=== PATIENT | male | born 1980 | race Caucasian/White ===

== ENCOUNTER 2017-10-01 21:46 | Emergency (ER) | payer OTHER ==
[2017-10-01 21:51] VITALS: BP 149/67; PULSE 85; RESP 16; TEMP 98.5
[2017-10-01] MEDS ORDERED: ORPHENADRINE 30 MG/ML 2 ML VIAL IM STA (22:05)
[2017-10-01] MEDS ORDERED: KETOROLAC 60 MG/2 ML VIAL IM STA (22:05)
--- NOTE | 2017-10-01 22:14 | ED ---
General Adult HPI - General Chief complaint: Extremity Injury, Lower Stated complaint: hip pain Time Seen by Provider: 10/01/17 21:57 Source: patient, RN notes reviewed Mode of arrival: ambulatory Limitations: no limitations - History of Present Illness Initial comments: 37-year-old male presents to the emergency department with a chief complaint of left hip pain. He states he twisted and he developed pain and left hip. He states that stretching and rubbing it seemed to get better. He states he then fell off the floor and developed the same pain again. He took one of his narcosis and muscle relaxers which did seem to help with the pain. He states in the left hip buttock area. Patient states that there is no falls or injuries that he is aware of. Patient denies any history of this in the past. Patient states is not currently having any other symptoms at this time. Patient denies any recent fever, chills, shortness of breath, chest pain, back pain, abdominal pain, nausea vomiting, numbness or tingling, dysuria or hematuria, constipation or diarrhea, headaches or visual changes, or any other current symptoms. - Related Data Previous Rx's Medication Instructions Recorded Ibuprofen [Motrin] 600 mg PO Q6HR PRN #20 tab 10/01/17 Orphenadrine [Norflex] 100 mg PO Q12H #10 tablet.er 10/01/17 predniSONE 50 mg PO DAILY #5 tab 10/01/17 Allergies Allergy/AdvReac Type Severity Reaction Status Date / Time No Known Allergies Allergy Verified 09/17/14 22:40 Review of Systems ROS Statement: Those systems with pertinent positive or pertinent negative responses have been documented in the HPI. ROS Other: All systems not noted in ROS Statement are negative. Past Medical History Past Medical History: Heart Failure, COPD, Diabetes Mellitus, Hypertension Additional Past Medical History / Comment(s): Cervical fracture, hypercholestremia. History of Any Multi-Drug Resistant Organisms: None Reported Past Surgical History: No Surgical Hx Reported Past Psychological History: No Psychological Hx Reported Smoking Status: Current every day smoker Past Alcohol Use History: Occasional Past Drug Use History: None Reported General Exam Limitations: no limitations General appearance: alert, in no apparent distress Eye exam: Present: normal appearance, PERRL, EOMI. Absent: scleral icterus, conjunctival injection, periorbital swelling ENT exam: Present: normal exam, mucous membranes moist Neck exam: Present: normal inspection. Absent: tenderness, meningismus, lymphadenopathy Respiratory exam: Present: normal lung sounds bilaterally. Absent: respiratory distress, wheezes, rales, rhonchi, stridor Cardiovascular Exam: Present: regular rate, normal rhythm, normal heart sounds. Absent: systolic murmur, diastolic murmur, rubs, gallop, clicks Extremities exam: Present: normal inspection, full ROM, normal capillary refill. Absent: tenderness, pedal edema, joint swelling, calf tenderness Back exam: Present: normal inspection, full ROM, tenderness (Over the SI joint) . Absent: muscle spasm, paraspinal tenderness, vertebral tenderness Neurological exam: Present: alert, oriented X3 Psychiatric exam: Present: normal affect, normal mood Skin exam: Present: warm, dry, intact, normal color. Absent: rash Course Vital Signs 10/01/17 21:47 Temperature 98.5 F Pulse Rate 85 Respiratory 16 Rate Blood Pressure 149/67 O2 Sat by Pulse 98 Oximetry Medical Decision Making - Medical Decision Making 37-year-old male presents with what is suspicious for a sciatica type pain. We will start the patient on muscle relaxers Relaxers and anti-inflammatories for home. We did discuss follow-up return parameters all questions. Patient stated that he understood and management this plan. All questions have been answered. He will be discharged home. - Radiology Data Radiology results: report reviewed, image reviewed Disposition Clinical Impression: Sciatica of left side Disposition: HOME SELF-CARE Condition: Stable Instructions: Sciatica (ED), Lower Back Exercises (ED) Additional Instructions: Please use medication as discussed. Please follow up with family doctor if symptoms have not improved over the next two days. Please return to the emergency room if your symptoms increase or worsen or for any other concerns. Prescriptions: Ibuprofen [Motrin] 600 mg PO Q6HR PRN #20 tab PRN Reason: Pain Orphenadrine [Norflex] 100 mg PO Q12H #10 tablet.er predniSONE 50 mg PO DAILY #5 tab Referrals: Abdoulaye Barth MD [Primary Care Provider] - 1-2 days Time of Disposition: 22:56
--- NOTE | 2017-10-01 22:46 | XR ---
EXAMINATION TYPE: XR Hip LT and AP Pelvis DATE OF EXAM: 10/01/2017 COMPARISON: NONE HISTORY: Twisting injury TECHNIQUE: A single AP view of the pelvis is obtained. Two views of the left hip are obtained. FINDINGS: The pelvic ring is intact. Proximal left femur and hip joint are intact. There is mild crista tabular spurring. There is no sign of hip dysplasia. CONCLUSION: Early osteoarthritic changes. No fracture seen.
--- NOTE | 2017-10-01 22:55 | XR ---
EXAMINATION TYPE: XR lumbar spine 2 or 3V DATE OF EXAM: 10/01/2017 COMPARISON: NONE HISTORY: Back pain TECHNIQUE: 3 views FINDINGS: Vertebra have normal alignment. Disc spaces are normal. Posterior elements are intact. Ther e is no compression fracture. Sacroiliac joints appear normal. IMPRESSION: Normal lumbar spine.
== END 2017-10-01 23:01 | disposition home or self-care (01) ==
LOC: EC 21:46
DX: M54.30 Sciatica, unspecified side (principal); F17.200 Nicotine dependence, unspecified, uncomplicated
CPT/HCPCS: 72100; 73502; 99283; 96372 ×2; J2360; J1885

== ENCOUNTER → 2018-09-11 | Outpatient (CLI) | payer OTHER ==
--- NOTE | 2018-09-11 16:03 | CONS ---
CONSULTATION DATE OF SERVICE: 09/11/2018 This patient is a 38-year-old gentleman who has been evaluated in [facility] for possible obstructive sleep apnea-hypopnea syndrome. HISTORY OF PRESENT ILLNESS/SLEEP-WAKE EVALUATION: Patient's usual sleep schedule is from between 10 p.m. and 2 a.m. until between 11 a.m. and 1 p.m. He may have some problem with falling asleep. He has a TV set in the bedroom. He usually sleeps on the back or side position, sometimes in a chair, with loud snoring and witnessed episodes of stopped breathing during sleep with choking and gasping for air. He wakes up from sleep up to 10 times, with up to 10 episodes of nocturia. In the morning the patient wakes up tired, falling asleep during the day. He has episodes of irritability, anxiety, sexual dysfunction. [place] Sleepiness Scale is significantly increased at 17. PAST MEDICAL HISTORY: Positive for: 1. Diabetes. 2. Hypertension. 3. Hyperlipidemia. 4. COPD. PAST SURGICAL HISTORY: None. MEDICATIONS: 1. Glucophage. 2. Amaryl. 3. Zestoretic. 4. Lipitor. SOCIAL HISTORY: Positive for smoking for about 22 pack/years. Continues to smoke. Alcohol consumption occasional. FAMILY HISTORY: Hypertension, heart problems, hyperlipidemia, asthma, bronchitis, lung problems, sleep apnea, snoring, pneumonia, headaches, insomnia, diabetes, acid reflux, restless legs. REVIEW OF SYSTEMS: Multiple awakenings from sleep, sleepiness during the day. PHYSICAL EXAMINATION: GENERAL: A pleasant gentleman without distress. VITAL SIGNS: BP 130/63, HR 92, RR 16, height 5 feet 9-1/2 inches, weight 372 pounds. Body mass index 54.1. Temperature 97.0, oxygen saturation at room air 96%. HEENT: PERRLA, EOMI. Evaluation of oropharynx showed tongue protrudes midline. Extremely low position of soft palate. NECK: Supple. No JVD. Thyroid is not palpable. Wide neck; 22 inches in circumference. LUNGS: Clear to percussion and to auscultation. Good air exchange. No wheezing or rhonchi. HEART: S1, S2 regular. No murmurs, gallops or rubs. ABDOMEN: Obese. EXTREMITIES: One to two plus bilateral ankle edema. FORM GRADER OPERATOR: Awake, alert, and oriented X3. Cranial nerves 2 to 7 intact. There is no fasciculation or atrophy. noted. No focal deficits observed. IMPRESSION: 1. Snoring, witnessed episodes of stopped breathing during sleep, low position of soft palate, wide neck, sleepiness; obstructive sleep apnea-hypopnea syndrome. 2. Obesity; body mass index 54.1. 3. Diabetes. 4. Hypertension. 5. History of chronic obstructive pulmonary disease. PLAN: 1. Polysomnography for evaluation of patient's breathing during sleep. 2. CPAP/BiPAP titration if sleep study confirms obstructive sleep apnea-hypopnea syndrome. 3. Preferable position during sleep on the side. 4. No driving if patient feels any sleepiness. 5. I will see patient for follow up visit to explain results of testing and following plan. Thank you very much for referring this patient for consultation. Sincerely, Obi Rich MD, PhD, FAASM Diplomat of [place] [employer] [place] [employer] Nutritional Yeast Supervisor of [facility] [place] MMODL / IJN: [id number] /
== END | disposition home or self-care (01) ==
LOC: SLEEP 14:06
PROVIDERS: ATTEND Internal Medicine
DX: G47.33 Obstructive sleep apnea (adult) (pediatric) (principal); R35.1 Nocturia; E66.9 Obesity, unspecified; E11.9 Type 2 diabetes mellitus without complications; I10 Essential (primary) hypertension; J44.9 Chronic obstructive pulmonary disease, unspecified; F41.9 Anxiety disorder, unspecified; F17.210 Nicotine dependence, cigarettes, uncomplicated; R45.4 Irritability and anger; Z79.84 Long term (current) use of oral hypoglycemic drugs; Z68.43 Body mass index [BMI] 50.0-59.9, adult; Z79.899 Other long term (current) drug therapy; Z83.6 Family history of other diseases of the respiratory system
CPT/HCPCS: 99211

== ENCOUNTER 2019-05-19 07:00 | Day surgery (SDC) | payer OTHER ==
[2019-05-18 10:33] VITALS: BMI 52.9
[2019-05-19] MEDS ORDERED: LACTATED RINGERS 1,000 ML IV SCH (07:07)
[2019-05-19 07:20] VITALS: RESP 18; TEMP 98.2
[2019-05-19 07:30] LABS: Glucose,Whole Blood 131 mg/dL (75-99)
[2019-05-19] MEDS ORDERED: fentaNYL (PF) 50 MCG/ML 2 ML AMP ONE (07:43)
[2019-05-19] MEDS ORDERED: MIDAZOLAM 2 MG/2 ML VIAL ONE (07:43)
[2019-05-19] MEDS ORDERED: PROPOFOL 10 MG/ML 20 ML VIAL IV ONE (07:43)
[2019-05-19] MEDS ORDERED: LIDOCAINE 1% INJ 10MG/ML (20 ML MDV) ONE (07:43)
--- NOTE | 2019-05-19 07:57 | P.GSHP ---
History of Present Illness H&P Date: 05/19/19 Chief Complaint: GI bleed This a 2-year-old male referred from Dr. Veronica. Patient has had complaints of GI bleed. He presents today for EGD and colonoscopy. Past Medical History Past Medical History: Heart Failure, COPD, Diabetes Mellitus, GERD/Reflux, Hyperlipidemia, Hypertension, Sleep Apnea/CPAP/BIPAP Additional Past Medical History / Comment(s): Cervical fracture c-7 , occasional numbness and tingling in arms ., Gout., Sleep Apnea (never obtained his c-pap), edema legs-some weeping of fluid., recent cut on right leg., back pain, diabetic neuropathy., blood in stool. History of Any Multi-Drug Resistant Organisms: MRSA Date of last positivie culture/infection: 2005 MDRO Source:: lungs, urine & blood ([facility]) Past Surgical History: No Surgical Hx Reported Additional Past Anesthesia/Blood Transfusion Reaction / Comment(s): no anesthesia hx. Past Psychological History: Anxiety, Depression Additional Psychological History / Comment(s): never treated. Smoking Status: Heavy tobacco smoker Past Alcohol Use History: Occasional Additional Past Alcohol Use History / Comment(s): smokes 1 1/2 to 2 ppd. started smoking age 14. Past Drug Use History: None Reported - Past Family History Mother Family Medical History: No Reported History Medications and Allergies Home Medications Medication Instructions Recorded Confirmed Type Atorvastatin [Lipitor] 20 mg PO HS 05/18/19 05/19/19 History Cetirizine HCl 10 mg PO DAILY 05/18/19 05/19/19 History Fluticasone/Salmeterol [Airduo 1 puff INHALATION BID 05/18/19 05/19/19 History Respiclick 232-14 Mcg] Furosemide [Lasix] 60 mg PO DAILY 05/18/19 05/19/19 History Glimepiride [Amaryl] 1 mg PO AC-BRKFST 05/18/19 05/19/19 History Losartan Potassium [Cozaar] 100 mg PO DAILY 05/18/19 05/19/19 History Omeprazole [PriLOSEC] 40 mg PO DAILY 05/18/19 05/19/19 History metFORMIN HCL [Glucophage] 1,000 mg PO BID 05/18/19 05/19/19 History traMADol HCl [Ultram] 50 mg PO BID PRN 05/18/19 05/19/19 History Allergies Allergy/AdvReac Type Severity Reaction Status Date / Time No Known Allergies Allergy Verified 05/18/19 09:47 Surgical - Exam Vital Signs Temp Pulse Resp BP Pulse Ox 98.2 F 82 18 133/63 93 L 05/19/19 07:18 05/19/19 07:18 05/19/19 07:18 05/19/19 07:18 05/19/19 07:18 - General well developed, well nourished, no distress - Eyes PERRL - ENT normal pinna - Neck no masses - Respiratory normal expansion - Cardiovascular Rhythm: regular - Abdomen Abdomen: soft, non tender Results - Labs Abnormal Lab Results - Last 24 Hours (Table) 05/19/19 Range/Units 07:27 POC Glucose (mg/dL) 131 H (75-99) mg/dL Assessment and Plan Assessment: GI bleed. We'll perform EGD and colonoscopy.
--- NOTE | 2019-05-19 08:19 | P.OP ---
Description of Procedure: Date of Procedure: 05/19/19 Preoperative Diagnosis: GI bleed Postoperative Diagnosis: Antral gastritis Internal hemorrhoids Mild diverticular changes Procedure(s) Performed: EGD Colonoscopy Anesthesia: MAC Surgeon: Pradeep Garduno Pathology: other (Antrum) Condition: stable Disposition: PACU Description of Procedure: Patient's placed on the endoscopy table in the lateral position. He received IV sedation. The gastric scope placed oropharynx and passed in the esophagus. Scope was then placed through the pylorus. The first and second portion of the duodenum appeared normal. Scope was then brought back the antrum and this appeared moderately inflamed. A biopsies performed. The scope was retroflexed and remainder of the stomach appeared normal. The GE junction was at 40 cms. The distal esophagus appeared normal. The proximal esophagus appeared normal. Scope scope was withdrawn for patient. Next, digital rectal exam was performed which revealed internal and external hemorrhoids. The prostate was symmetrical without nodules. The flexible colonoscope was then placed patient anus and passed throughout the entire colon. The ileocecal valve was visualized. The cecum, ascending and transverse colon appeared normal. In the descending and sigmoid colon there was a few scattered diverticula. Scope was then brought back the rectum and this appeared normal. Scope was withdrawn for patient. It was presumed the patient had rectal bleeding due to his hemorrhoids. Additional CC's: José Antonio Veronica
[2019-05-19 08:42] VITALS: BP 115/67; PULSE 78
== END 2019-05-19 08:50 | disposition home or self-care (01) ==
LOC: ORWHC2ENDO 07:00
PROVIDERS: ATTEND Surgery
DX: K29.50 Unspecified chronic gastritis without bleeding (principal); K64.8 Other hemorrhoids; K64.4 Residual hemorrhoidal skin tags; K57.30 Diverticulosis of large intestine without perforation or abscess without bleeding; K92.2 Gastrointestinal hemorrhage, unspecified; I11.0 Hypertensive heart disease with heart failure; E78.5 Hyperlipidemia, unspecified; E11.40 Type 2 diabetes mellitus with diabetic neuropathy, unspecified; Z79.84 Long term (current) use of oral hypoglycemic drugs; J44.9 Chronic obstructive pulmonary disease, unspecified; K21.9 Gastro-esophageal reflux disease without esophagitis; G47.30 Sleep apnea, unspecified; R60.0 Localized edema; F41.9 Anxiety disorder, unspecified; F32.9 Major depressive disorder, single episode, unspecified; F17.210 Nicotine dependence, cigarettes, uncomplicated; Z79.51 Long term (current) use of inhaled steroids; Z79.899 Other long term (current) drug therapy
CPT/HCPCS: 88305; 45378; 43239; J2250; J2001; J3010; J2704

== ENCOUNTER → 2019-05-22 | Day surgery (SDC) | payer OTHER ==
[2019-05-20 15:04] VITALS: BMI 52.9
[~2019-05-22] MED LIST: DEXAMETHASONE SOD PHOSPHATE 10 MG/ML 1 ML VIAL IV ONE; GLYCOPYRROLATE 0.2 MG/ML 2 ML VIAL ONE; HEPARIN SODIUM,PORCINE 5,000 UNIT/ML 1 ML VIAL SQ ONE; HYDROcodone/APAP 5-325MG 1 EACH TAB PO ONE; KETOROLAC 30 MG/ML 1 ML VIAL ONE; LACTATED RINGERS 1,000 ML IV SCH; LIDOCAINE 1% 20 ML VIAL (10MG/ML) FOR IV START INTRADERMA PRN; LIDOCAINE 1% 20 ML VIAL (10MG/ML) FOR IV START IV ONE; LIDOCAINE 1% INJ 10MG/ML (20 ML MDV) ONE; LIDOCAINE 1%-EPI 1:100,000 20 ML VIAL SQ ONE; MIDAZOLAM 2 MG/2 ML VIAL IV PRN; MIDAZOLAM 2 MG/2 ML VIAL ONE; NEOSTIGMINE 1 MG/ML 10 ML VIAL ONE; ONDANSETRON 4 MG/2 ML VIAL IVP ONE; PROPOFOL 10 MG/ML 20 ML VIAL IV ONE; ROCURONIUM BROMIDE 10 MG/ML 10 ML VIAL IV ONE; SCOPOLAMINE 1.5MG/72HR PATCH TRANSDERM ONE; SUCCINYLCHOLINE CHLORIDE VIAL 200 MG/10 ML VIAL IV ONE; ceFAZolin 3 GM in SODIUM CHLORIDE 0.9% 100 ML IVPB ONE; fentaNYL (PF) 50 MCG/ML 2 ML AMP ONE
[2019-05-22 08:37] VITALS: TEMP 97.2
--- NOTE | 2019-05-22 08:39 | P.GSHP ---
History of Present Illness H&P Date: 05/22/19 Chief Complaint: Right upper quadrant pain This a 38-year-old male who's had complaints of right quadrant pain. Patient's workup found have evidence of chronic cholecystitis. He presents today for laparoscopic cholecystectomy. Past Medical History Past Medical History: Heart Failure, COPD, Diabetes Mellitus, GERD/Reflux, Hyperlipidemia, Hypertension, Sleep Apnea/CPAP/BIPAP Additional Past Medical History / Comment(s): CERVICAL FX C-7, OCCASIONAL NUMBNESS & TINGLING IN ARMS, GOUT, SLEEP APNEA (NEVER OBTAINED HIS C-PAP), EDEMA LEGS - SOME WEEPING OF FLUID, RECENT CUT ON RIGHT LEG., BACK PAIN, DIABETIC N EUROPATHY. , GASTRITIS, DIVERTICULI. History of Any Multi-Drug Resistant Organisms: MRSA Date of last positivie culture/infection: 2005? MDRO Source:: LUNGS,URINE BLOOD (AT [facility]) Past Surgical History: No Surgical Hx Reported Additional Past Surgical History / Comment(s): EGD, COLONOSCOPY Past Anesthesia/Blood Transfusion Reactions: No Reported Reaction Past Psychological History: Anxiety, Depression Additional Psychological History / Comment(s): NEVER TREATED. Smoking Status: Heavy tobacco smoker Past Alcohol Use History: Occasional Additional Past Alcohol Use History / Comment(s): SMOKES 1 1/2 - 2 PPD, STARTED SMOKING AGE 14. Past Drug Use History: None Reported - Past Family History Mother Family Medical History: No Reported History Medications and Allergies Home Medications Medication Instructions Recorded Confirmed Type Atorvastatin [Lipitor] 20 mg PO HS 05/18/19 05/22/19 History Cetirizine HCl 10 mg PO DAILY 05/18/19 05/22/19 History Fluticasone/Salmeterol [Airduo 1 puff INHALATION BID 05/18/19 05/22/19 History Respiclick 232-14 Mcg] Furosemide [Lasix] 60 mg PO DAILY 05/18/19 05/22/19 History Glimepiride [Amaryl] 1 mg PO AC-BRKFST 05/18/19 05/22/19 History Losartan Potassium [Cozaar] 100 mg PO DAILY 05/18/19 05/22/19 History Omeprazole [PriLOSEC] 40 mg PO DAILY 05/18/19 05/20/19 History metFORMIN HCL [Glucophage] 1,000 mg PO BID 05/18/19 05/22/19 History traMADol HCl [Ultram] 50 mg PO BID PRN 05/18/19 05/22/19 History Allergies Allergy/AdvReac Type Severity Reaction Status Date / Time No Known Allergies Allergy Verified 05/18/19 09:47 Surgical - Exam Vital Signs Temp Pulse Resp BP Pulse Ox 97.2 F L 79 16 140/72 91 L 05/22/19 08:35 05/22/19 08:35 05/22/19 08:35 05/22/19 08:35 05/22/19 08:35 - General well developed, well nourished, no distress - Eyes PERRL - ENT normal pinna - Neck no masses - Respiratory normal expansion - Cardiovascular Rhythm: regular - Abdomen Abdomen: soft, non tender Assessment and Plan Assessment: Chronic cholecystitis. We'll perform laparoscopic cholecystectomy.
[2019-05-22 08:44] LABS: Glucose,Whole Blood 141 mg/dL (75-99)
--- NOTE | 2019-05-22 09:51 | P.OP ---
Date of Procedure: 05/22/19 Preoperative Diagnosis: Cholecystitis Postoperative Diagnosis: Cholecystitis Procedure(s) Performed: Laparoscopic cholecystectomy Anesthesia: CLAUDIA Surgeon: Pradeep Garduno Estimated Blood Loss (ml): 5 Pathology: other (Gallbladder) Condition: stable Disposition: PACU Description of Procedure: The patient was placed on the operating table. The patient received a general endotracheal tube anesthesia. The patients abdomen was prepped and draped in the usual sterile fashion. Through an infraumbilical stab incision, the fascia of the anterior abdominal wall was grasped with a pair of Kochers and then the Veress needle was placed in the peritoneal cavity. Position of the Veress needle was confirmed with positive drop test. The abdomen was then insufflated. After adequate insufflation, the 10 mm trocar was placed in the peritoneal cavity. Following this the laparoscope was placed in the peritoneal cavity. The patient was placed in the head-up, right side up position and then a 5 mm trocar was placed in the right lateral and right subcostal position under direct visualization. A 8 mm trocar was placed in the epigastric position. The gallbladder was grasped in the fundus and infundibulum. Traction on the gallbladder was placed in the lateral and the cephalad positions. The triangle of Calot was visualized.. The cystic duct was bluntly dissected until the union of the cystic duct and common bile duct was seen. A critical view of safety was achieved. The cystic duct was then divided and sealed with the Harmonic scissors. A PDS Endoloop was then placed throughout the cystic duct stump. The cystic artery divided and sealed with the Harmonic scissors. The gallbladder was then removed from the liver bed using Harmonic scissors. The gallbladder was then extracted through the epigastric port site. Operative field was checked for any bleeding spots and Harmonic scissors was used to coagulate the liver bed. The abdomen was irrigated. The trocars were removed. The skin was closed using interrupted 3-0 Vicryl suture. Dermabond dressing were applied. The patient tolerated the procedure well.
[2019-05-22 10:05] LABS: Glucose,Whole Blood 183 mg/dL (75-99)
[2019-05-22] MEDS: HYDROmorphone 0.5 MG/0.5 ML SYRINGE IVP PRN ×2 (10:05→10:28)
[2019-05-22 11:57] VITALS: RESP 16
[2019-05-22 11:58] VITALS: BP 119/77; PULSE 70
== END ==
LOC: OR 08:10
PROVIDERS: ATTEND Surgery
DX: K81.2 Acute cholecystitis with chronic cholecystitis (principal); I11.0 Hypertensive heart disease with heart failure; I50.9 Heart failure, unspecified; I73.9 Peripheral vascular disease, unspecified; J44.9 Chronic obstructive pulmonary disease, unspecified; G47.33 Obstructive sleep apnea (adult) (pediatric); E78.5 Hyperlipidemia, unspecified; E11.40 Type 2 diabetes mellitus with diabetic neuropathy, unspecified; F41.9 Anxiety disorder, unspecified; F32.9 Major depressive disorder, single episode, unspecified; F17.210 Nicotine dependence, cigarettes, uncomplicated; M10.9 Gout, unspecified; K21.9 Gastro-esophageal reflux disease without esophagitis; K57.90 Diverticulosis of intestine, part unspecified, without perforation or abscess without bleeding; Z79.84 Long term (current) use of oral hypoglycemic drugs; Z79.899 Other long term (current) drug therapy; Z87.19 Personal history of other diseases of the digestive system; Z86.14 Personal history of Methicillin resistant Staphylococcus aureus infection; Z79.51 Long term (current) use of inhaled steroids; Z82.49 Family history of ischemic heart disease and other diseases of the circulatory system
CPT/HCPCS: 88304; 47562; J2250; J0330; J1644; J1100; J2710; J0690; J2405; J2001; J3010; J1885; J2704; J1170

== ENCOUNTER 2019-06-10 12:03 | Day surgery (SDC) | payer OTHER ==
[2019-06-09 12:24] VITALS: BMI 52.9
[~2019-06-10 12:03] MED LIST changes: +ALBUTEROL NEB (CONC) 2.5 MG/0.5 ML INHALATION ONE; -DEXAMETHASONE SOD PHOSPHATE 10 MG/ML 1 ML VIAL IV ONE; -GLYCOPYRROLATE 0.2 MG/ML 2 ML VIAL ONE; -HEPARIN SODIUM,PORCINE 5,000 UNIT/ML 1 ML VIAL SQ ONE; -HYDROcodone/APAP 5-325MG 1 EACH TAB PO ONE; -KETOROLAC 30 MG/ML 1 ML VIAL ONE; -LIDOCAINE 1% 20 ML VIAL (10MG/ML) FOR IV START IV ONE; -LIDOCAINE 1% INJ 10MG/ML (20 ML MDV) ONE; -LIDOCAINE 1%-EPI 1:100,000 20 ML VIAL SQ ONE; +LIDOCAINE 2% (PF) 20 MG/ML 5 ML VIAL INHALATION ONE; +LIDOCAINE VISCOUS 300 MG/15 ML CUP MUCOUS MEM ONE; -MIDAZOLAM 2 MG/2 ML VIAL IV PRN; -MIDAZOLAM 2 MG/2 ML VIAL ONE; -NEOSTIGMINE 1 MG/ML 10 ML VIAL ONE; -ONDANSETRON 4 MG/2 ML VIAL IVP ONE; -PROPOFOL 10 MG/ML 20 ML VIAL IV ONE; -ROCURONIUM BROMIDE 10 MG/ML 10 ML VIAL IV ONE; -SCOPOLAMINE 1.5MG/72HR PATCH TRANSDERM ONE; +SODIUM CHLORIDE 0.9% 1,000 ML IV SCH; -SUCCINYLCHOLINE CHLORIDE VIAL 200 MG/10 ML VIAL IV ONE; -ceFAZolin 3 GM in SODIUM CHLORIDE 0.9% 100 ML IVPB ONE; -fentaNYL (PF) 50 MCG/ML 2 ML AMP ONE
[2019-06-10 12:23] VITALS: RESP 16; TEMP 97.1
[2019-06-10 12:27] LABS: Glucose,Whole Blood 136 mg/dL (75-99)
[2019-06-10] MEDS ORDERED: PROPOFOL 10 MG/ML 20 ML VIAL IV ONE (13:19)
[2019-06-10] MEDS ORDERED: LIDOCAINE 2% INJ 20 MG/ML INTRATRACH ONE (13:37)
[2019-06-10 14:04] VITALS: BP 133/86; PULSE 81
--- NOTE | 2019-06-10 15:27 | PCN ---
PROCEDURE NOTE PROCEDURE: Bronchoscopy and bronchial washing of the left lower lobe. PREOPERATIVE DIAGNOSIS: Hemoptysis. POSTOPERATIVE DIAGNOSIS: Hemoptysis secondary to bronchitis. ANESTHESIA USED: IV conscious sedation. PROCEDURE DESCRIPTION: Patient was prepared according to the bronchoscope protocol. The patient was brought into the bronchoscopy suite, placed in a supine position, O2 was applied via nasal cannula, and we monitored his O2 saturation continuously, blood pressure was intermittently monitored, and cardiac rhythm was continuously monitored. After adequate IV conscious sedation, the bronchoscope was inserted through the right naris down to the area of the vocal cords. There was no evidence of any bleeding noted all the way down to the vocal cords. Lidocaine was applied over the vocal cords, and the bronchoscope was advanced further down to the trachea. Thorough examination was done of the trachea, right miryam, right upper lobe, right middle lobe, right lower lobe, left upper lobe, lingula and left lower lobe. There was evidence of a bronchitic changes in the bronchial tubes, especially in the left lower lobe bronchus; however, there was no evidence of any significant purulent secretions and there was no evidence of any endobronchial tumors in the areas examined. No evidence of active bleeding noted. Then, the left lower lobe was washed with 20 mL of saline, and sent for cultures mostly. The procedure was well tolerated, no evidence of any immediate complications, again there was no evidence of any endobronchial tumors to explain his recurrent episodes of hemoptysis and again felt that his hemoptysis is secondary to intermittent bronchitis. The procedure was well tolerated. MMODL / IJN: [id number] /
== END 2019-06-10 14:23 | disposition home or self-care (01) ==
LOC: ORWHC2ENDO 12:03
PROVIDERS: ATTEND Internal Medicine
DX: J44.9 Chronic obstructive pulmonary disease, unspecified (principal); E11.9 Type 2 diabetes mellitus without complications; D72.829 Elevated white blood cell count, unspecified; K21.9 Gastro-esophageal reflux disease without esophagitis; G47.33 Obstructive sleep apnea (adult) (pediatric); I11.0 Hypertensive heart disease with heart failure; I50.9 Heart failure, unspecified; F17.210 Nicotine dependence, cigarettes, uncomplicated; E66.01 Morbid (severe) obesity due to excess calories; Z79.899 Other long term (current) drug therapy; Z79.84 Long term (current) use of oral hypoglycemic drugs; Z79.891 Long term (current) use of opiate analgesic; Z90.49 Acquired absence of other specified parts of digestive tract; Z98.890 Other specified postprocedural states; Z68.43 Body mass index [BMI] 50.0-59.9, adult
CPT/HCPCS: 94640; 87070; 87205; 87116; 87077; 87186; 87206; 31622; J2001 ×2; J2704; 31624

== ENCOUNTER → 2019-07-30 | Outpatient (CLI) | payer OTHER ==
[2019-07-30 13:00] LABS: HCT 43.9 % (39.0-53.0); HGB 13.6 gm/dL (13.0-17.5); MCHC 31.1 g/dL (31.0-37.0); MCV 86.8 fL (80.0-100.0); Platelet Count 269 k/uL (150-450); RBC 5.05 m/uL (4.30-5.90); RDW 15.3 % (11.5-15.5); WBC 11.8 k/uL (3.8-10.6)
[2019-07-30 14:36] LABS: Erythrocyte Sedimentation Rate 32 mm/hr (0-15)
[2019-07-30 18:57] LABS: ALT 44 U/L (10-49); AST 28 U/L (14-35); African American GFR (CKD) 107.9 (60.0-200.0); Alkaline Phosphatase 121 U/L (41-126); C Reactive Protein 0.7 mg/dL (0.0-0.8); Calcium 8.9 mg/dL (8.7-10.3); Carbon Dioxide 27.7 mmol/L (21.6-31.8); Chloride 106 mmol/L (96-109); Globulin 2.2 g/dL (1.6-3.3); Glucose 127 mg/dL (70-110); Non-African American GFR(CKD) 93.1 (60.0-200.0); Potassium 4.2 mmol/L (3.5-5.5); Rheumatoid Factor, Qnt <4 IU/mL (0-13); Sodium 140 mmol/L (135-145); Total Bilirubin 0.3 mg/dL (0.3-1.2); Total Protein 6.6 g/dL (6.2-8.2)
== END | disposition home or self-care (01) ==
LOC: LABWHC1 12:11
PROVIDERS: ATTEND Nurse Practitioner Acute Care
DX: E55.9 Vitamin D deficiency, unspecified (principal); R20.2 Paresthesia of skin; M13.0 Polyarthritis, unspecified
CPT/HCPCS: 36415; 80053; 82306; 82607; 84207; 85027; 85652; 86038; 86140; 86431

== ENCOUNTER → 2020-02-16 | Outpatient (CLI) | payer OTHER ==
--- NOTE | 2020-02-16 14:46 | XR ---
EXAMINATION TYPE: XR chest 2V DATE OF EXAM: 02/16/2020 COMPARISON: NONE TECHNIQUE: PA and lateral views submitted. HISTORY: Cough FINDINGS: The lungs are clear and there is no pneumothorax, pleural effusion, or focal pneumonia. Mildly coar sened interstitium. Heart size upper limits of normal. Hyperinflation. Hypertrophic and degenerative changes spine. Bilateral pleural thickening. IMPRESSION: 1. Correlate for bronchitis or interstitial pneumonitis..
== END | disposition home or self-care (01) ==
LOC: RADXRMAIN 14:12
PROVIDERS: ATTEND Pediatrics
DX: R05 Cough (principal)
CPT/HCPCS: 71046

== ENCOUNTER → 2020-02-16 | Outpatient (CLI) | payer OTHER | END | disposition home or self-care (01) | LOC: LABWHC1 14:10 | PROVIDERS: ATTEND Pediatrics | DX: Z20.828 Contact with and (suspected) exposure to other viral communicable diseases (principal) | CPT/HCPCS: U0003; C9803 ==

== ENCOUNTER 2020-05-31 20:38 | Observation (INO) | payer OTHER ==
[2020-05-31] MEDS ORDERED: ASPIRIN 81 MG PO STA (21:00)
--- NOTE | 2020-05-31 21:10 | ED ---
General Adult HPI - General Chief complaint: Chest Pain Stated complaint: Chest pain,SOB Time Seen by Provider: 05/31/20 20:54 Source: patient Mode of arrival: ambulatory Limitations: no limitations - History of Present Illness Initial comments: 39-year-old male patient presents to the emergency department today for evaluation of chest pain. Patient states he has been having pain intermittently over the last 3 days worsening today. States the pain is across his chest and radiates up into his right shoulder and his lower jaw. States he does become sweaty when the pain comes on. He does report increased shortness of breath over the last couple of days especially with activity. States the pain comes on when he is walking or lifting things. He does have history significant for CHF, hyperlipidemia, hypertension, and diabetes. Family history of coronary artery disease in his father. He does report leg swelling but does admit to not taking his Lasix as directed. Denies any significant cough or sputum production. Denies fever or chills. Patient denies any recent rash, abdominal pain, nausea, vomiting, diarrhea, constipation, back pain, numbness, tingling, dizziness, weakness, hematuria, dysuria, urinary urgency, urinary frequency, headache, visual changes, or any other complaints. - Related Data Home Medications Medication Instructions Recorded Confirmed Atorvastatin [Lipitor] 20 mg PO HS 05/18/19 06/09/19 Cetirizine HCl 10 mg PO DAILY 05/18/19 06/09/19 Fluticasone/Salmeterol [Airduo 1 puff INHALATION BID 05/18/19 06/09/19 Respiclick 232-14 Mcg] Furosemide [Lasix] 60 mg PO DAILY 05/18/19 06/09/19 Glimepiride [Amaryl] 1 mg PO AC-BRKFST 05/18/19 06/09/19 Losartan Potassium [Cozaar] 100 mg PO DAILY 05/18/19 06/09/19 metFORMIN HCL [Glucophage] 1,000 mg PO BID 05/18/19 06/09/19 traMADol HCl [Ultram] 50 mg PO BID PRN 05/18/19 06/09/19 Naproxen (Unknown Dose) 1 tab PO DIRECTED PRN 06/09/19 Prednisone Dose Pack 1 dose PO DAILY 06/09/19 Allergies Allergy/AdvReac Type Severity Reaction Status Date / Time No Known Allergies Allergy Verified 05/31/20 20:47 Review of Systems ROS Statement: Those systems with pertinent positive or pertinent negative responses have been documented in the HPI. ROS Other: All systems not noted in ROS Statement are negative. Past Medical History Past Medical History: Chest Pain / Angina, Heart Failure, COPD, Diabetes Mellitus, GERD/Reflux, Hypertension Additional Past Medical History / Comment(s): Cervical fracture, chronic back pain, gout., PVD, diabetic neuropathy., sleep apnea- never got machine., chronic cough for 5-6 yrs- coughing up blood., Hx of Lap cholecystectomy 05/22/19- incision healing has steri strip ., has cut on left foot by little toe that is taking a long time to heal (stepped on wood). History of Any Multi-Drug Resistant Organisms: MRSA Date of last positivie culture/infection: 2005 MDRO Source:: "all over- systemic" Past Surgical History: Cholecystectomy Past Anesthesia/Blood Transfusion Reactions: No Reported Reaction Past Psychological History: Anxiety, Depression Past Alcohol Use History: Occasional Past Drug Use History: None Reported - Past Family History Mother Family Medical History: No Reported History General Exam Limitations: no limitations General appearance: alert, in no apparent distress, other (Physical well- developed, well-nourished adult male patient in no acute distress. Vital signs upon presentation are temperature 98.7F, pulse 71, respirations 20, blood pressure 166/81, pulse ox 95% on room air.) Eye exam: Present: normal appearance, PERRL, EOMI. Absent: scleral icterus, conjunctival injection, periorbital swelling ENT exam: Present: normal exam, normal oropharynx, mucous membranes moist Respiratory exam: Present: normal lung sounds bilaterally. Absent: respiratory distress, wheezes, rales, rhonchi, stridor Cardiovascular Exam: Present: regular rate, normal rhythm, normal heart sounds. Absent: systolic murmur, diastolic murmur, rubs, gallop, clicks GI/Abdominal exam: Present: soft, normal bowel sounds. Absent: distended, tenderness, guarding, rebound, rigid Extremities exam: Present: full ROM, normal capillary refill, other (Bilateral lower extremity edema, height, dark and skin consistent with venous insuff iciency.). Absent: normal inspection, tenderness, pedal edema, joint swelling, calf tenderness Neurological exam: Present: alert, oriented X3, CN II-XII intact Psychiatric exam: Present: normal affect, normal mood Skin exam: Present: warm, dry, intact, normal color. Absent: rash Course Vital Signs 05/31/20 05/31/20 20:43 22:31 Temperature 98.7 F Pulse Rate 71 76 Respiratory 20 18 Rate Blood Pressure 166/81 147/77 O2 Sat by Pulse 95 94 L Oximetry Medical Decision Making - Medical Decision Making 39-year-old male patient presents to the emergency department today for evaluation of chest pain with radiation into the lower jaw and right shoulder. Physical examination did reveal soft nontender abdomen. Labs reviewed and revealed elevated white blood cell count at 10.7. Glucose 147. Lipase is elevated at 631. Troponin was 0.018. EKG showed normal sinus with no ST elevation or depression. Patient does have significant past medical history and family history is a little bit to the hospital for serial troponins and further evaluation in the morning. Ultrasound be obtained to rule out gallbladder disease. Patient is agreeable with this plan. - Lab Data Result diagrams: 05/31/20 21:31 05/31/20 21:31 Lab Results 05/31/20 05/31/20 05/31/20 Range/Units 21:31 21:31 21:31 WBC 10.7 H (3.8-10.6) k/uL RBC 4.42 (4.30-5.90) m/uL Hgb 12.7 L (13.0-17.5) gm/dL Hct 38.1 L (39.0-53.0) % MCV 86.2 (80.0-100.0) fL MCH 28.7 (25.0-35.0) pg MCHC 33.3 (31.0-37.0) g/dL RDW 15.2 (11.5-15.5) % Plt Count 202 (150-450) k/uL MPV 6.8 Neutrophils % 63 % Lymphocytes % 27 % Monocytes % 4 % Eosinophils % 3 % Basophils % 1 % Neutrophils # 6.8 (1.3-7.7) k/uL Lymphocytes # 2.9 (1.0-4.8) k/uL Monocytes # 0.4 (0-1.0) k/uL Eosinophils # 0.4 (0-0.7) k/uL Basophils # 0.1 (0-0.2) k/uL PT 10.8 (9.0-12.0) sec INR 1.0 (<1.2) APTT 26.4 (22.0-30.0) sec Sodium 137 (137-145) mmol/L Potassium 3.8 (3.5-5.1) mmol/L Chloride 101 (98-107) mmol/L Carbon Dioxide 30 (22-30) mmol/L Anion Gap 6 mmol/L BUN 16 (9-20) mg/dL Creatinine 0.79 (0.66-1.25) mg/dL Est GFR (CKD-EPI)AfAm >90 (>60 ml/min/1.73 sqM) Est GFR (CKD-EPI)NonAf >90 (>60 ml/min/1.73 sqM) Glucose 147 H (74-99) mg/dL Calcium 8.8 (8.4-10.2) mg/dL Magnesium 1.7 (1.6-2.3) mg/dL Total Bilirubin 0.4 (0.2-1.3) mg/dL AST 35 (17-59) U/L ALT 35 (4-49) U/L Alkaline Phosphatase 113 (38-126) U/L Troponin I (0.000-0.034) ng/mL NT-Pro-B Natriuret Pep pg/mL Total Protein 6.7 (6.3-8.2) g/dL Albumin 3.7 (3.5-5.0) g/dL Lipase 631 H (23-300) U/L 05/31/20 05/31/20 Range/Units 21:31 21:31 WBC (3.8-10.6) k/uL RBC (4.30-5.90) m/uL Hgb (13.0-17.5) gm/dL Hct (39.0-53.0) % MCV (80.0-100.0) fL MCH (25.0-35.0) pg MCHC (31.0-37.0) g/dL RDW (11.5-15.5) % Plt Count (150-450) k/uL MPV Neutrophils % % Lymphocytes % % Monocytes % % Eosinophils % % Basophils % % Neutrophils # (1.3-7.7) k/uL Lymphocytes # (1.0-4.8) k/uL Monocytes # (0-1.0) k/uL Eosinophils # (0-0.7) k/uL Basophils # (0-0.2) k/uL PT (9.0-12.0) sec INR (<1.2) APTT (22.0-30.0) sec Sodium (137-145) mmol/L Potassium (3.5-5.1) mmol/L Chloride (98-107) mmol/L Carbon Dioxide (22-30) mmol/L Anion Gap mmol/L BUN (9-20) mg/dL Creatinine (0.66-1.25) mg/dL Est GFR (CKD-EPI)AfAm (>60 ml/min/1.73 sqM) Est GFR (CKD-EPI)NonAf (>60 ml/min/1.73 sqM) Glucose (74-99) mg/dL Calcium (8.4-10.2) mg/dL Magnesium (1.6-2.3) mg/dL Total Bilirubin (0.2-1.3) mg/dL AST (17-59) U/L ALT (4-49) U/L Alkaline Phosphatase (38-126) U/L Troponin I 0.018 (0.000-0.034) ng/mL NT-Pro-B Natriuret Pep 28 pg/mL Total Protein (6.3-8.2) g/dL Albumin (3.5-5.0) g/dL Lipase (23-300) U/L - Radiology Data Radiology results: report reviewed, image reviewed Two-view x-ray of the chest is obtained. Report was reviewed in its entirety. Impression by Dr. Bain shows normal chest. No change. Disposition Clinical Impression: Chest pain, Elevated lipase Disposition: ADMITTED IP TO THIS [facility] Condition: Serious Referrals: José Antonio Veronica MD [Primary Care Provider] - 1-2 days Decision to Admit Reason: Admit from EC Decision Date: 05/31/20 Decision Time: 23:29
[2020-05-31 21:59] LABS: Basophils # (A) 0.1 k/uL (0-0.2); Basophils % (A) 1 %; Eosinophils # (A) 0.4 k/uL (0-0.7); Eosinophils % (A) 3 %; HCT 38.1 % (39.0-53.0); HGB 12.7 gm/dL (13.0-17.5); Lymphocytes # (A) 2.9 k/uL (1.0-4.8); Lymphocytes % (A) 27 %; MCH 28.7 pg (25.0-35.0); MCHC 33.3 g/dL (31.0-37.0); MCV 86.2 fL (80.0-100.0); Mean Platelet Volume 6.8; Monocytes # (A) 0.4 k/uL (0-1.0); Monocytes % (A) 4 %; Neutrophils # (A) 6.8 k/uL (1.3-7.7); Neutrophils % (A) 63 %; Platelet Count 202 k/uL (150-450); RBC 4.42 m/uL (4.30-5.90); RDW 15.2 % (11.5-15.5); WBC 10.7 k/uL (3.8-10.6)
[2020-05-31 22:09] LABS: Partial Thromboplastin Time 26.4 sec (22.0-30.0); Prothrombin Time 10.8 sec (9.0-12.0)
--- NOTE | 2020-05-31 22:11 | XR ---
EXAMINATION TYPE: XR chest 2V DATE OF EXAM: 05/31/2020 COMPARISON: 02/16/2020. HISTORY: Chest pain TECHNIQUE: 2 views FINDINGS: Heart and mediastinum are normal. Lungs are clear. Diaphragm is normal. Bony thorax is norm al. There are chest leads. IMPRESSION: Normal chest. No change.
[2020-05-31 22:12] LABS: ALT 35 U/L (4-49); AST 35 U/L (17-59); African American GFR (CKD) >90 (>60 ml/min/1.73 sqM); Albumin 3.7 g/dL (3.5-5.0); Alkaline Phosphatase 113 U/L (38-126); Anion Gap 6 mmol/L; Blood Urea Nitrogen 16 mg/dL (9-20); Calcium 8.8 mg/dL (8.4-10.2); Carbon Dioxide 30 mmol/L (22-30); Chloride 101 mmol/L (98-107); Glucose 147 mg/dL (74-99); Lipase 631 U/L (23-300); Magnesium 1.7 mg/dL (1.6-2.3); Non-African American GFR(CKD) >90 (>60 ml/min/1.73 sqM); Potassium 3.8 mmol/L (3.5-5.1); Sodium 137 mmol/L (137-145); Total Bilirubin 0.4 mg/dL (0.2-1.3); Total Protein 6.7 g/dL (6.3-8.2)
[2020-05-31] MEDS ORDERED: ONDANSETRON 4 MG/2 ML VIAL IVP PRN (23:25)
[2020-05-31] MEDS ORDERED: NALOXONE 0.4 MG/ML 1 ML VIAL IV PRN (23:25)
[2020-05-31] MEDS ORDERED: MORPHINE SULFATE 4 MG/ML SYRINGE IV PRN (23:25)
[2020-06-01 04:42] LABS: Basophils # (A) 0.1 k/uL (0-0.2); Basophils % (A) 1 %; Eosinophils # (A) 0.3 k/uL (0-0.7); Eosinophils % (A) 3 %; HGB 12.7 gm/dL (13.0-17.5); Lymphocytes # (A) 3.2 k/uL (1.0-4.8); Lymphocytes % (A) 28 %; MCH 28.2 pg (25.0-35.0); MCHC 32.6 g/dL (31.0-37.0); MCV 86.3 fL (80.0-100.0); Mean Platelet Volume 7.7; Monocytes # (A) 0.6 k/uL (0-1.0); Monocytes % (A) 5 %; Neutrophils # (A) 7.1 k/uL (1.3-7.7); Neutrophils % (A) 62 %; Platelet Count 237 k/uL (150-450); RBC 4.51 m/uL (4.30-5.90); RDW 15.5 % (11.5-15.5); WBC 11.4 k/uL (3.8-10.6)
[2020-06-01 05:10] LABS: ALT 37 U/L (4-49); AST 37 U/L (17-59); African American GFR (CKD) >90 (>60 ml/min/1.73 sqM); Albumin 3.9 g/dL (3.5-5.0); Alkaline Phosphatase 126 U/L (38-126); Anion Gap 6 mmol/L; Blood Urea Nitrogen 15 mg/dL (9-20); Carbon Dioxide 29 mmol/L (22-30); Chloride 102 mmol/L (98-107); Glucose 89 mg/dL (74-99); Lipase 196 U/L (23-300); Non-African American GFR(CKD) >90 (>60 ml/min/1.73 sqM); Potassium 4.1 mmol/L (3.5-5.1); Sodium 137 mmol/L (137-145); Total Bilirubin 0.5 mg/dL (0.2-1.3)
[2020-06-01 06:47] LABS: Glucose,Whole Blood 112 mg/dL (75-99)
[2020-06-01 08:40] VITALS: RESP 16; TEMP 97.7
[2020-06-01] MEDS ORDERED: traMADol 50 MG TAB PO PRN (09:01)
[2020-06-01] MEDS ORDERED: PREGABALIN 75 MG CAP PO SCH (09:15)
[2020-06-01] MEDS ORDERED: ATORVASTATIN 20 MG TAB PO SCH (09:15)
[2020-06-01] MEDS ORDERED: LOSARTAN 50 MG TAB PO SCH (09:15)
[2020-06-01] MEDS ORDERED: metFORMIN 500 MG TAB PO SCH (09:15)
[2020-06-01] MEDS ORDERED: FUROSEMIDE 80 MG TAB PO SCH (09:15)
[2020-06-01] MEDS ORDERED: GLIMEPIRIDE 1 MG TAB PO SCH (09:15)
[2020-06-01] MEDS ORDERED: ASPIRIN 81 MG PO SCH (10:45)
[2020-06-01] MEDS ORDERED: METOPROLOL TARTRATE 25 MG TAB PO SCH (10:45)
--- NOTE | 2020-06-01 10:45 | P.CRDCN ---
History of Present Illness Consult date: 06/01/20 Consult reason: chest pain Chief complaint: chest pain History of present illness: This is a pleasant 39-year-old gentleman who follows regularly with Dr. Yanez in the office. He has a documented history of diabetes, hypertension, hyperlipidemia, family history of premature coronary artery disease, nicotine d ependence, peripheral vascular disease, obesity, sleep apnea. He presents to the emergency room on this occasion with symptoms of midsternal chest discomfort. Patient states he gets a pressure and tightness in his chest which radiates across his chest. Up into the shoulder and neck and jaw area. He does get associated diaphoresis. He states that the symptoms are worse when he exerts himself by walking or lifting things. The symptoms seemed to subside when he rests. His EKG on presentation here shows a normal sinus rhythm with no acute changes. Chest x-ray is normal. White blood cell count 10.7 hemoglobin 12.7 platelet count 202, sodium 137, potassium 3.8, BUN 16, creatinine 0.7 magn esium 1.7 troponin 0.01 8.01 8.020 BNP level is 28. At the time of my examination this morning, patient is sitting up in his chair at bedside, he was initially difficult to arouse, and a deep sleep. He denies any chest pain at present. His last [place] scan stress test was performed in June 2019 which was reported to be normal. Past Medical History Past Medical History: Chest Pain / Angina, Heart Failure, COPD, Diabetes Mellitus, GERD/Reflux, Hypertension Additional Past Medical History / Comment(s): Cervical fracture, chronic back pain, gout., PVD, diabetic neuropathy., sleep apnea- never got machine., chronic cough for 5-6 yrs- coughing up blood., Hx of Lap cholecystectomy 05/22/19- incision healing has steri strip ., has cut on left foot by little toe that is taking a long time to heal (stepped on wood). History of Any Multi-Drug Resistant Organisms: MRSA Date of last positivie culture/infection: 2005 MDRO Source:: "all over- systemic" Past Surgical History: Cholecystectomy Past Anesthesia/Blood Transfusion Reactions: No Reported Reaction Past Psychological History: Anxiety, Depression Additional Psychological History / Comment(s): panic attack Smoking Status: Current every day smoker Past Alcohol Use History: Occasional Additional Past Alcohol Use History / Comment(s): smokes 1 1/ to 2 ppd. smokes cigarettes, cigars and pipe. Past Drug Use History: None Reported - Past Family History Mother Family Medical History: No Reported History Medications and Allergies Home Medications Medication Instructions Recorded Confirmed Type Atorvastatin [Lipitor] 20 mg PO DAILY 05/18/19 05/31/20 History Furosemide [Lasix] 80 mg PO DAILY 05/18/19 05/31/20 History Glimepiride [Amaryl] 1 mg PO AC-BRKFST 05/18/19 05/31/20 History Losartan Potassium [Cozaar] 100 mg PO DAILY 05/18/19 05/31/20 History metFORMIN HCL [Glucophage] 1,000 mg PO BID-W/MEALS 05/18/19 05/31/20 History traMADol HCl [Ultram] 50 - 100 mg PO TID PRN 05/18/19 05/31/20 History Naproxen 500 mg PO BID PRN 05/31/20 05/31/20 History Pregabalin [Lyrica] 150 mg PO TID 05/31/20 05/31/20 History Allergies Allergy/AdvReac Type Severity Reaction Status Date / Time No Known Allergies Allergy Verified 05/31/20 23:39 Physical Exam Vitals: Vital Signs Temp Pulse Pulse Resp BP BP Pulse Ox 06/01/20 08:40 62 16 06/01/20 07:37 97.7 F 62 16 152/74 91 L 06/01/20 03:00 97.6 F 72 18 158/75 93 L 06/01/20 00:45 97.8 F 70 18 158/68 94 L 05/31/20 23:51 97.7 F 69 18 155/85 99 05/31/20 23:00 70 18 155/63 99 05/31/20 22:31 76 18 147/77 94 L 05/31/20 20:43 98.7 F 71 20 166/81 95 Intake and Output 05/31/20 06/01/20 06/01/20 22:59 06:59 14:59 Intake Total 0 Balance 0 Intake: Oral 0 Other: Voiding Method Toilet Toilet # Voids 1 1 Weight 180.076 kg 180.076 kg PHYSICAL EXAMINATION: GENERAL: 39-year-old gentleman in no acute distress at the time of my examination HEENT: Head is atraumatic, normocephalic. Pupils equal, round. Sclera anicteric. Conjunctiva are clear. Mucous membranes of the mouth are moist. Neck is supple. There is no elevated jugular venous pressure. HEART EXAMINATION: Heart S1, S2 normal. No murmur or gallop heard. CHEST EXAMINATION: Lungs are clear to auscultation and precussion. No chest wall tenderness is noted on palpation or with deep breathing. ABDOMEN: Soft, obese, nontender. Bowel sounds are heard. No organomegaly noted. EXTREMITIES: 2+ peripheral pulses with no evidence of peripheral edema and no calf tenderness noted. NEUROLOGIC [patient is awake, alert and oriented 3 . Results 06/01/20 02:58 06/01/20 02:58 Cardiac Enzymes 05/31/20 05/31/20 06/01/20 Range/Units 21:31 21:31 00:37 AST 35 (17-59) U/L Troponin I 0.018 0.018 (0.000-0.034) ng/mL 06/01/20 06/01/20 Range/Units 02:58 02:58 AST 37 (17-59) U/L Troponin I 0.020 (0.000-0.034) ng/mL Coagulation 05/31/20 Range/Units 21:31 PT 10.8 (9.0-12.0) sec APTT 26.4 (22.0-30.0) sec CBC 05/31/20 06/01/20 Range/Units 21:31 02:58 WBC 10.7 H 11.4 H (3.8-10.6) k/uL RBC 4.42 4.51 (4.30-5.90) m/uL Hgb 12.7 L 12.7 L (13.0-17.5) gm/dL Hct 38.1 L 39.0 (39.0-53.0) % Plt Count 202 237 (150-450) k/uL Comprehensive Metabolic Panel 05/31/20 06/01/20 Range/Units 21:31 02:58 Sodium 137 137 (137-145) mmol/L Potassium 3.8 4.1 (3.5-5.1) mmol/L Chloride 101 102 (98-107) mmol/L Carbon Dioxide 30 29 (22-30) mmol/L BUN 16 15 (9-20) mg/dL Creatinine 0.79 0.73 (0.66-1.25) mg/dL Glucose 147 H 89 (74-99) mg/dL Calcium 8.8 9.0 (8.4-10.2) mg/dL AST 35 37 (17-59) U/L ALT 35 37 (4-49) U/L Alkaline Phosphatase 113 126 (38-126) U/L Total Protein 6.7 7.0 (6.3-8.2) g/dL Albumin 3.7 3.9 (3.5-5.0) g/dL Current Medications Generic Name Dose Route Start Last Admin Trade Name Freq PRN Reason Stop Dose Admin Atorvastatin Calcium 20 mg 06/01/20 09:15 Atorvastatin 20 Mg Tab PO DAILY [facility] Furosemide 80 mg 06/01/20 09:15 Furosemide 80 Mg Tab PO DAILY [facility] Glimepiride 1 mg 06/01/20 09:15 Glimepiride 1 Mg Tab PO AC-BRKFST [facility] Losartan Potassium 100 mg 06/01/20 09:15 Losartan 50 Mg Tab PO DAILY [facility] Metformin HCl 1,000 mg 06/01/20 09:15 Metformin 500 Mg Tab PO BID-W/MEALS [facility] Morphine Sulfate 4 mg 05/31/20 23:25 Morphine Sulfate 4 Mg/Ml Syringe IV Q4HR PRN Severe Pain Naloxone HCl 0.2 mg 05/31/20 23:25 Naloxone 0.4 Mg/Ml 1 Ml Vial IV Q2M PRN Opioid Reversal Ondansetron HCl 4 mg 05/31/20 23:25 Ondansetron 4 Mg/2 Ml Vial IVP Q8HR PRN Nausea And Vomiting Pregabalin 150 mg 06/01/20 09:15 Pregabalin 75 Mg Cap PO TID [facility] Tramadol HCl 50 mg 06/01/20 09:01 Tramadol 50 Mg Tab PO TID PRN Pain Intake and Output 05/31/20 06/01/20 06/01/20 22:59 06:59 14:59 Intake Total 0 Balance 0 Intake: Oral 0 Other: Voiding Method Toilet Toilet # Voids 1 1 Weight 180.076 kg 180.076 kg 06/01/20 02:58 06/01/20 02:58 EKG Interpretations (text) EKG shows a normal sinus rhythm with no acute changes. Assessment and Plan Plan: Assessment and plan #1 chest pain, suggestive of angina, possible acute coronary syndrome. Tr oponins 0.018, 0.018, 0.020. EKG shows normal sinus rhythm with no acute changes. #2 hypertension #3 diabetes #4 hyperlipidemia #5 obesity #6 sleep apnea #7 PVD Plan We will obtain an echocardiogram with Doppler study. Patient is also been advised to undergo cardiac catheterization, the risks and the benefits were explained to the patient in detail and he is willing to proceed. This will be performed today by Dr. Wills. Further recommendations will be based on these findings and the patient's overall clinical course. We will continue aspirin, Lipitor, losartan, and add a small dose of beta gustabo. DNP note has been reviewed, I agree with a documented findings and plan of care. Patient was seen and examined.
[2020-06-01 12:01] LABS: Hemoglobin A1C 8.9 % (4.0-6.0)
[2020-06-01 13:01] LABS: Glucose,Whole Blood 144 mg/dL (75-99)
[2020-06-01 13:12] VITALS: BP 138/73; PULSE 60
--- NOTE | 2020-06-01 17:24 | P.HPIM ---
History of Present Illness Please consider this is combined [place] and discharge summary. Please note patient was not discharged but he left AGAINST MEDICAL ADVICE Diagnoses: Chest pain, grain distributor recommended cardiac cath.on this coming saturday, Patient does not want to wait and he wants to leave AMA. Diabetes mellitus Hypertension Nicotine dependence History of COPD History of heart failure Chronic back pain History of Peripheral vascular disease Diabetic neuropathy Hospital course This is a pleasant 39 years old male with past medical history of heart failure, COPD, diabetes mellitus, GERD, hypertension, chronic back pain, peripheral vascular disease, diabetic neuropathy. Presents with chest pain, originally patient has chest pain with exertion and with walking for example to his bone, yesterday he had chest pain while at rest, he described the chest pain central threaded into both shoulders and both jaws but currently is chest pain-free and he rated as 0/10. He denies any other symptoms, no abdominal pain, no nausea vomiting, no dyspnea. His cigarette smoker about 1.5-2 packs per day. Patient is counseled to quit smoking and I offered nicotine patch he states that he has at that home. Patient has been evaluated by grain distributor and recommended cardiac cath which cannot be done to Saturday because of long holiday. Patient does not want to wait and he wanted to leave AMA. I went into the room I explained the risks to the patient which includes but not limited to the risk of recurrent chest pain, hea rt attack and/or and he verbalized understanding but he still wants to leave the hospital. I told the patient is there any think I can do to prevent him from leaving AMA and he said ""no"". Patient states that he will follow-up with his grain distributor Dr. Yanez and I encouraged him to do that as soon as possible. Also I instructed the patient if he develops recurrent chest pain or dyspnea or dizziness or any other symptoms to call 911 on come to the hospital right away and he agrees based upon my evaluation, pt has capacity to make medical decision Review of systems CONSTITUTIONAL: No fever, no malaise, no fatigue. HEENT: No recent visual problems or hearing problems. Denied any sore throat. CARDIOVASCULAR: No orthopnea, PND, no palpitations, no syncope. PULMONARY: No shortness of breath, no cough, no hemoptysis. GASTROINTESTINAL: No diarrhea, no nausea, no vomiting, no abdominal pain. Normoactive bowel sounds. NEUROLOGICAL: No headaches, no weakness, no numbness. HEMATOLOGICAL: Denies any bleeding or petechiae. GENITOURINARY: Denies any burning micturition, frequency, or urgency. MUSCULOSKELETAL/RHEUMATOLOGICAL: Denies any joint pain, swelling, or any muscle pain. ENDOCRINE: Denies any polyuria or polydipsia. Physical exam before leaving A Gen: patient is a AAOx3, no distress. Obese CVS: S1-S2, RRR, no murmur Lungs: B/L CTA, no wheezing Abdomen: soft, no distention, no tenderness, positive bowel sounds Extremity: no leg edema or induration Time spent more than 35 minutes Past Medical History Past Medical History: Chest Pain / Angina, Heart Failure, COPD, Diabetes Mellitus, GERD/Reflux, Hypertension Additional Past Medical History / Comment(s): Cervical fracture, chronic back pain, gout., PVD, diabetic neuropathy., sleep apnea- never got machine., chronic cough for 5-6 yrs- coughing up blood., Hx of Lap cholecystectomy 05/22/19- incision healing has steri strip ., has cut on left foot by little toe that is taking a long time to heal (stepped on wood). History of Any Multi-Drug Resistant Organisms: MRSA Date of last positivie culture/infection: 2005 MDRO Source:: "all over- systemic" Past Surgical History: Cholecystectomy Past Anesthesia/Blood Transfusion Reactions: No Reported Reaction Past Psychological History: Anxiety, Depression Additional Psychological History / Comment(s): panic attack Smoking Status: Current every day smoker Past Alcohol Use History: Occasional Additional Past Alcohol Use History / Comment(s): smokes 1 1/ to 2 ppd. smokes cigarettes, cigars and pipe. Past Drug Use History: None Reported - Past Family History Mother Family Medical History: No Reported History Medications and Allergies Home Medications Medication Instructions Recorded Confirmed Type Atorvastatin [Lipitor] 20 mg PO DAILY 05/18/19 05/31/20 History Furosemide [Lasix] 80 mg PO DAILY 05/18/19 05/31/20 History Glimepiride [Amaryl] 1 mg PO AC-BRKFST 05/18/19 05/31/20 History Losartan Potassium [Cozaar] 100 mg PO DAILY 05/18/19 05/31/20 History metFORMIN HCL [Glucophage] 1,000 mg PO BID-W/MEALS 05/18/19 05/31/20 History traMADol HCl [Ultram] 50 - 100 mg PO TID PRN 05/18/19 05/31/20 History Pregabalin [Lyrica] 150 mg PO TID 05/31/20 05/31/20 History RX: Naproxen 500 mg PO BID PRN 05/31/20 05/31/20 History Allergies Allergy/AdvReac Type Severity Reaction Status Date / Time No Known Allergies Allergy Verified 05/31/20 23:39 Physical Exam Vitals: Vital Signs Temp Pulse Pulse Resp BP BP Pulse Ox 06/01/20 13:00 60 16 138/73 90 L 06/01/20 08:40 62 16 06/01/20 07:37 97.7 F 62 16 152/74 91 L 06/01/20 03:00 97.6 F 72 18 158/75 93 L 06/01/20 00:45 97.8 F 70 18 158/68 94 L 05/31/20 23:51 97.7 F 69 18 155/85 99 05/31/20 23:00 70 18 155/63 99 05/31/20 22:31 76 18 147/77 94 L 05/31/20 20:43 98.7 F 71 20 166/81 95 Intake and Output 05/31/20 06/01/20 06/01/20 22:59 06:59 14:59 Intake Total 0 Balance 0 Intake: Oral 0 Other: Voiding Method Toilet Toilet # Voids 1 1 Weight 180.076 kg 180.076 kg Results CBC & Chem 7: 06/01/20 02:58 06/01/20 02:58 Labs: Abnormal Lab Results - Last 24 Hours (Table) 05/31/20 05/31/20 06/01/20 Range/Units 21:31 21:31 02:58 WBC 10.7 H 11.4 H (3.8-10.6) k/uL Hgb 12.7 L 12.7 L (13.0-17.5) gm/dL Hct 38.1 L (39.0-53.0) % Glucose 147 H (74-99) mg/dL POC Glucose (mg/dL) (75-99) mg/dL Hemoglobin A1c (4.0-6.0) % Lipase 631 H (23-300) U/L 06/01/20 06/01/20 06/01/20 Range/Units 02:58 06:29 13:00 WBC (3.8-10.6) k/uL Hgb (13.0-17.5) gm/dL Hct (39.0-53.0) % Glucose (74-99) mg/dL POC Glucose (mg/dL) 112 H 144 H (75-99) mg/dL Hemoglobin A1c 8.9 H (4.0-6.0) % Lipase (23-300) U/L
[2020-06-01] MEDS ORDERED: INSULIN ASPART (NovoLOG) 100 UNIT/ML VIAL SQ SCH (17:30)
== END 2020-06-01 15:19 | disposition left against medical advice (07) ==
LOC: EC 20:38 → 1SOBS 22:57 → OBSVTOIN 06-01 13:58 → INTOOBSV 06-01 13:58
PROVIDERS: ADMIT Internal Medicine; ATTEND Internal Medicine
DX: R07.89 Other chest pain (principal); Z53.29 Procedure and treatment not carried out because of patient's decision for other reasons; R74.8 Abnormal levels of other serum enzymes; M25.511 Pain in right shoulder; M25.512 Pain in left shoulder; R68.84 Jaw pain; R61 Generalized hyperhidrosis; R06.02 Shortness of breath; E11.40 Type 2 diabetes mellitus with diabetic neuropathy, unspecified; I11.0 Hypertensive heart disease with heart failure; I50.9 Heart failure, unspecified; F17.210 Nicotine dependence, cigarettes, uncomplicated; F17.290 Nicotine dependence, other tobacco product, uncomplicated; J44.9 Chronic obstructive pulmonary disease, unspecified; G89.29 Other chronic pain; M54.9 Dorsalgia, unspecified; I73.9 Peripheral vascular disease, unspecified; E78.5 Hyperlipidemia, unspecified; M79.89 Other specified soft tissue disorders; K21.9 Gastro-esophageal reflux disease without esophagitis; M10.9 Gout, unspecified; G47.30 Sleep apnea, unspecified; F41.9 Anxiety disorder, unspecified; F32.9 Major depressive disorder, single episode, unspecified; F41.0 Panic disorder [episodic paroxysmal anxiety]; E66.9 Obesity, unspecified; Z71.6 Tobacco abuse counseling; Z90.49 Acquired absence of other specified parts of digestive tract; Z79.899 Other long term (current) drug therapy; Z91.14 Patient's other noncompliance with medication regimen; Z79.51 Long term (current) use of inhaled steroids; Z79.84 Long term (current) use of oral hypoglycemic drugs; Z79.891 Long term (current) use of opiate analgesic; Z79.1 Long term (current) use of non-steroidal anti-inflammatories (NSAID); Z87.81 Personal history of (healed) traumatic fracture; Z89.432 Acquired absence of left foot; Z86.14 Personal history of Methicillin resistant Staphylococcus aureus infection; Z68.43 Body mass index [BMI] 50.0-59.9, adult; Z82.49 Family history of ischemic heart disease and other diseases of the circulatory system
CPT/HCPCS: 99285; 36415; 93005; 83880; 80053 ×2; 83690 ×2; 83735; 84484 ×2; 85025 ×2; 85610; 85730; 83036; 71046; G0378 ×2

== ENCOUNTER 2020-06-02 09:05 | Inpatient (IN) | payer OTHER ==
[2020-06-02] MEDS ORDERED: HEPARIN SODIUM,PORCINE 5,000 UNIT/ML 1 ML VIAL IV STA (09:09)
[2020-06-02] MEDS ORDERED: fentaNYL (PF) 50 MCG/ML 2 ML AMP IVP STA (09:09)
[2020-06-02] MEDS ORDERED: MORPHINE SULFATE 4 MG/ML SYRINGE IVP STA (09:14)
--- NOTE | 2020-06-02 09:25 | XR ---
EXAMINATION TYPE: XR chest 1V portable DATE OF EXAM: 06/02/2020 COMPARISON: 05/31/2020 HISTORY: Chest pain TECHNIQUE: Single frontal view of the chest is obtained. FINDINGS: There is no focal air space opacity, pleural effusion, or pneumothorax seen. The cardiac silhouette size is within normal limits. The osseous structures are intact. IMPRESSION: 1. No acute process.
[2020-06-02] MEDS ORDERED: NALOXONE 0.4 MG/ML 1 ML VIAL IV PRN (09:36)
--- NOTE | 2020-06-02 09:36 | ED ---
Chest Pain HPI - General Chief Complaint: Chest Pain Stated Complaint: Chest Pain Source: patient, EMS Mode of arrival: EMS Limitations: no limitations - History of Present Illness Initial Comments: 39-year-old male with past mental history of COPD, diabetes, hypertension who presents emergency Department with chest pain. Is reported the patient was seen on the . Patient came in with chest pain and was admitted to the hospital. He was evaluated by cardiology who recommended that the patient have a cardiac cath. Patient was unhappy that his cath was not to be performed until Saturday and therefore left the hospital AGAINST MEDICAL ADVICE yesterday. When he awoke this morning states that the patient was ashen keller in complaining of chest pain. Pain started around 7 AM. EMS was called. They did give him 2 nitro en route to the hospital without improvement in his pain. gave the patients a full dose aspirin at the onset of his pain. EMS had concern for STEMI however EKG was unable to be transmitted to the hospital. Patient admits associated nausea and diaphoresis. No previous history of cardiac disease. No other alleviating, precipitating or modifying factors - Related Data Home Medications Medication Instructions Recorded Confirmed Atorvastatin [Lipitor] 20 mg PO DAILY 05/18/19 06/02/20 Furosemide [Lasix] 80 mg PO DAILY 05/18/19 06/02/20 Glimepiride [Amaryl] 1 mg PO AC-BRKFST 05/18/19 06/02/20 Losartan Potassium [Cozaar] 100 mg PO DAILY 05/18/19 06/02/20 metFORMIN HCL [Glucophage] 1,000 mg PO BID-W/MEALS 05/18/19 06/02/20 traMADol HCl [Ultram] 50 - 100 mg PO TID PRN 05/18/19 06/02/20 Naproxen 500 mg PO BID PRN 05/31/20 06/02/20 Pregabalin [Lyrica] 150 mg PO TID 05/31/20 06/02/20 Aspirin 325 mg PO ONCE PRN 06/02/20 06/02/20 [place] (Unknown Strength) 1 tab PO ONCE PRN 06/02/20 06/02/20 Allergies Allergy/AdvReac Type Severity Reaction Status Date / Time No Known Allergies Allergy Verified 06/02/20 09:31 Review of Systems ROS Statement: Those systems with pertinent positive or pertinent negative responses have been documented in the HPI. ROS Other: All systems not noted in ROS Statement are negative. EKG Findings - EKG Comments: EKG Findings:: EKG demonstrates sinus rhythm with a ventricular rate of 73. MD interval 166. QRS 94. QTC 414. ST segment elevation in V1 through V3 as well as in 1 and aVL. Reciprocal depression in the inferior leads 2, 3, aVF. Past Medical History Past Medical History: Chest Pain / Angina, Heart Failure, COPD, Diabetes Melli tus, GERD/Reflux, Hypertension Additional Past Medical History / Comment(s): Cervical fracture, chronic back pain, gout., PVD, diabetic neuropathy., sleep apnea- never got machine., chronic cough for 5-6 yrs- coughing up blood., Hx of Lap cholecystectomy 05/22/19- incision healing has steri strip ., has cut on left foot by little toe that is taking a long time to heal (stepped on wood). History of Any Multi-Drug Resistant Organisms: MRSA Date of last positivie culture/infection: 2005 MDRO Source:: "all over- systemic" Past Surgical History: Cholecystectomy Past Anesthesia/Blood Transfusion Reactions: No Reported Reaction Past Psychological History: Anxiety, Depression Smoking Status: Current every day smoker Past Alcohol Use History: Occasional Past Drug Use History: None Reported - Past Family History Mother Family Medical History: No Reported History General Exam Limitations: no limitations Course Vital Signs 06/02/20 06/02/20 09:07 09:24 Temperature 97.3 F L Pulse Rate 73 71 Respiratory 20 20 Rate Blood Pressure 147/88 137/75 O2 Sat by Pulse 94 L 96 Oximetry - Reevaluation(s) Reevaluation #1: 06/02/20 09:35 9:10 STEMI activated Chest Pain MDM - MDM Upon arrival patient is placed in a trauma bay 1. Through history of physical exam was performed. Patient is hooked up to continuous pulse ox and cardiac monitoring. 12-lead EKG was performed which does demonstrate ST segment elevation in the anterior leads with reciprocal changes. STEMI is activated at this time. Patient was given informal grams of morphine for pain control. Laboratory studies obtained and portal chest x-rays performed. Dr. Jarrett does present to the emergency department and evaluates the patient himself. Agrees to take the patient to the [facility]. Discussed the case with Dr. Pretty. Patient was transferred to the [facility] in stable condition Disposition Clinical Impression: Chest pain, STEMI (ST elevation myocardial infarction) Disposition: ADMITTED IP TO THIS HOSP Condition: Serious Is patient prescribed a controlled substance at d/c from ED?: No Decision to Admit Reason: Admit from EC Decision Date: 06/02/20 Decision Time: 09:36
[2020-06-02] MEDS ORDERED: SODIUM CHLORIDE 0.9% 1,000 ML IV ONE (09:38)
[2020-06-02 09:40] LABS: Basophils % (A) 0 %; Eosinophils # (A) 0.1 k/uL (0-0.7); Eosinophils % (A) 1 %; HCT 42.2 % (39.0-53.0); HGB 13.5 gm/dL (13.0-17.5); Lymphocytes % (A) 13 %; MCH 27.8 pg (25.0-35.0); MCHC 31.9 g/dL (31.0-37.0); Mean Platelet Volume 6.8; Monocytes # (A) 0.6 k/uL (0-1.0); Monocytes % (A) 4 %; Neutrophils # (A) 13.1 k/uL (1.3-7.7); Neutrophils % (A) 82 %; Platelet Count 242 k/uL (150-450); RBC 4.84 m/uL (4.30-5.90); RDW 15.6 % (11.5-15.5)
[2020-06-02] MEDS ORDERED: LIDOCAINE 1% INJ 10MG/ML (20 ML MDV) ONE (09:45)
[2020-06-02] MEDS ORDERED: VERAPAMIL 2.5 MG/ML 2 ML AMP ONE (09:47)
[2020-06-02 09:48] LABS: INR 1.1 (<1.2); Partial Thromboplastin Time 44.7 sec (22.0-30.0); Prothrombin Time 11.4 sec (9.0-12.0)
[2020-06-02] MEDS ORDERED: fentaNYL (PF) 50 MCG/ML 2 ML AMP ONE (09:49)
[2020-06-02] MEDS ORDERED: LIDOCAINE 1% INJ 10MG/ML (20 ML MDV) SQ ONE ×2 (09:50→09:53)
[2020-06-02] MEDS ORDERED: MIDAZOLAM 2 MG/2 ML VIAL IV ONE (09:50)
[2020-06-02] MEDS ORDERED: fentaNYL (PF) 50 MCG/ML 2 ML AMP IV ONE (09:51)
[2020-06-02] MEDS ORDERED: VERAPAMIL SYRINGE (5 MG/10 ML) INTRAARTER ONE (09:54)
[2020-06-02] MEDS ORDERED: TICAGRELOR 90 MG TAB ONE (10:03)
[2020-06-02] MEDS ORDERED: HEPARIN SODIUM 1,000 UN/ML (10ML VL) ONE ×2 (10:03→10:35)
[2020-06-02] MEDS: HEPARIN SODIUM 1,000 UN/ML (10ML VL) IV ONE ×2 (10:06→10:21)
[2020-06-02 10:07] LABS: ALT 33 U/L (4-49); AST 32 U/L (17-59); African American GFR (CKD) >90 (>60 ml/min/1.73 sqM); Albumin 3.9 g/dL (3.5-5.0); Alkaline Phosphatase 141 U/L (38-126); Anion Gap 9 mmol/L; Blood Urea Nitrogen 21 mg/dL (9-20); Calcium 8.9 mg/dL (8.4-10.2); Carbon Dioxide 27 mmol/L (22-30); Chloride 101 mmol/L (98-107); Glucose 282 mg/dL (74-99); Lipase 322 U/L (23-300); Magnesium 1.8 mg/dL (1.6-2.3); Non-African American GFR(CKD) >90 (>60 ml/min/1.73 sqM); Potassium 3.8 mmol/L (3.5-5.1); Sodium 137 mmol/L (137-145); Total Bilirubin 0.4 mg/dL (0.2-1.3); Total Protein 7.5 g/dL (6.3-8.2)
[2020-06-02] MEDS ORDERED: TICAGRELOR 90 MG TAB PO ONE (10:09)
--- NOTE | 2020-06-02 10:15 | P.CRDCN ---
History of Present Illness Consult date: 06/02/20 History of present illness: This is a 39-year-old gentleman with history of hypertension, hypercholesterolemia and diabetes being followed by Dr. Yanez. He was admitted to this hospital with symptoms suggestive of angina. Patient was advised cardiac catheterization and Dr. Yanez was going to perform it. Apparently patient signed a medical advice. He he came back again to the emergency room with complaints of severe substernal chest pain of several hours duration with radiation to both arms. His EKG showed ST elevation in anterior leads suggestive of anterior wall DC. Patient is advised to have a cardiac cath for definitive diagnosis with the intention of primary intervention Review of Systems As per the chart Past Medical History Past Medical History: Chest Pain / Angina, Heart Failure, COPD, Diabetes Mellitus, GERD/Reflux, Hypertension Additional Past Medical History / Comment(s): Cervical fracture, chronic back pain, gout., PVD, diabetic neuropathy., sleep apnea- never got machine., chronic cough for 5-6 yrs- coughing up blood., Hx of Lap cholecystectomy 05/22/19- incision healing has steri strip ., has cut on left foot by little toe that is taking a long time to heal (stepped on wood). History of Any Multi-Drug Resistant Organisms: MRSA Date of last positivie culture/infection: 2005 MDRO Source:: "all over- systemic" Past Surgical History: Cholecystectomy Past Anesthesia/Blood Transfusion Reactions: No Reported Reaction Past Psychological History: Anxiety, Depression Smoking Status: Current every day smoker Past Alcohol Use History: Occasional Past Drug Use History: None Reported - Past Family History Mother Family Medical History: No Reported History Medications and Allergies Home Medications Medication Instructions Recorded Confirmed Type Atorvastatin [Lipitor] 20 mg PO DAILY 05/18/19 06/02/20 History Furosemide [Lasix] 80 mg PO DAILY 05/18/19 06/02/20 History Glimepiride [Amaryl] 1 mg PO AC-BRKFST 05/18/19 06/02/20 History Losartan Potassium [Cozaar] 100 mg PO DAILY 05/18/19 06/02/20 History metFORMIN HCL [Glucophage] 1,000 mg PO BID-W/MEALS 05/18/19 06/02/20 History traMADol HCl [Ultram] 50 - 100 mg PO TID PRN 11/11/19 11/26/20 History Naproxen 500 mg PO BID PRN 05/31/20 06/02/20 History Pregabalin [Lyrica] 150 mg PO TID 05/31/20 06/02/20 History Aspirin 325 mg PO ONCE PRN 06/02/20 06/02/20 History [place] (Unknown Strength) 1 tab PO ONCE PRN 06/02/20 06/02/20 History Allergies Allergy/AdvReac Type Severity Reaction Status Date / Time No Known Allergies Allergy Verified 06/02/20 09:31 Physical Exam Vitals: Vital Signs Temp Pulse Resp BP Pulse Ox 06/02/20 09:24 71 20 137/75 96 06/02/20 09:07 97.3 F L 73 20 147/88 94 L Intake and Output 06/01/20 06/02/20 06/02/20 22:59 06:59 14:59 Other: Weight 181.437 kg GENERAL EXAM: Patient is alert and oriented and still having severe chest discomfort. Obese HEENT: Normocephalic. Normal reaction of pupils, equal size, normal range of extraocular motion. No erythema or exudates in the throat. NECK: No masses, no nuchal rigidity. CHEST: No chest wall deformity. LUNGS: Equal air entry with no crackles or wheeze. Diminished air exchange HEART: S1 and S2 normal with no audible mumurs or gallops. Regular rhythm, femorals equal on both sides.. ABDOMEN: Protuberant. No hepatosplenomegaly, normal bowel sounds, no guarding or rigidity. SKIN: No rashes CENTRAL NERVOUS SYSTEM: No focal deficits. EXTREMITIES: No cyanosis, clubbing or edema. Results 06/02/20 09:22 06/02/20 09:22 Cardiac Enzymes 06/02/20 Range/Units 09: AST 32 (17-59) U/L Coagulation 06/02/20 Range/Units 09: PT 11.4 (9.0-12.0) sec APTT 44.7 H (22.0-30.0) sec CBC 06/02/20 Range/Units 09:22 WBC 16.0 H (3.8-10.6) k/uL RBC 4.84 (4.30-5.90) m/uL Hgb 13.5 (13.0-17.5) gm/dL Hct 42.2 (39.0-53.0) % Plt Count 242 (150-450) k/uL Comprehensive Metabolic Panel 06/02/20 Range/Units 09:22 Sodium 137 (137-145) mmol/L Potassium 3.8 (3.5-5.1) mmol/L Chloride 101 (98-107) mmol/L Carbon Dioxide 27 (22-30) mmol/L BUN 21 H (9-20) mg/dL Creatinine 0.85 (0.66-1.25) mg/dL Glucose 282 H (74-99) mg/dL Calcium 8.9 (8.4-10.2) mg/dL AST 32 (17-59) U/L ALT 33 (4-49) U/L Alkaline Phosphatase 141 H (38-126) U/L Total Protein 7.5 (6.3-8.2) g/dL Albumin 3.9 (3.5-5.0) g/dL Current Medications Generic Name Dose Route Start Last Admin Trade Name Freq PRN Reason Stop Dose Admin Naloxone HCl 0.2 mg 06/02/20 09:36 Naloxone 0.4 Mg/Ml 1 Ml Vial IV Q2M PRN Opioid Reversal Intake and Output 06/01/20 06/02/20 06/02/20 22:59 06:59 14:59 Other: Weight 181.437 kg Patient Weight 06/03/20 06:59 Weight 181.437 kg 06/02/20 09:22 06/02/20 09:22 EKG Interpretations (text) Sinus rhythm with anterior wall myocardial infarction Assessment and Plan (1) Essential hypertension Current Visit: Yes Status: Acute Code(s): I10 - ESSENTIAL (PRIMARY) HYPERTENSION SNOMED Code(s): 20416572 (2) STEMI (ST elevation myocardial infarction) Current Visit: Yes Status: Acute Code(s): I21.3 - ST ELEVATION (STEMI) MYOCARDIAL INFARCTION OF [facility] SITE SNOMED Code(s): 42336368 (3) Non-insulin dependent diabetes mellitus Current Visit: Yes Status: Acute Code(s): XBA4727 - SNOMED Code(s): 45116192 (4) Obese Current Visit: Yes Status: Acute Code(s): E66.9 - OBESITY, UNSPECIFIED SNOMED Code(s): 154646704 Plan: Proceed with cardiac catheterization with intervention of primary intervention. Patient will be continued on IV heparin, aspirin, beta blockers and nitrates
[2020-06-02] MEDS ORDERED: METOPROLOL TARTRATE 5 MG/5 ML VIAL IVP ONE ×2 (10:18→10:20)
--- NOTE | 2020-06-02 10:20 | P.CARDCATH ---
Date of Procedure: 06/02/20 Preoperative Diagnosis: Acute anterior wall DC Postoperative Diagnosis: Total occlusion of proximal LAD. Multiple lesions in the RCA Procedure(s) Performed: Left heart catheterization Description of Procedure: HISTORY: This patient is admitted to the hospital today with anterior wall DC. Patient is advised to have cardiac cath. CONSENT:I have discussed the risks, benefits and alternative therapies for the above-mentioned procedure and for both sedation/analgesia as well as necessary blood product administration, if indicated, as they pertain to this patient. The patient has indicated understanding and acceptance of the risks and procedures discussed. PROCEDURE: Patient was brought to the lab in a fasting state. Patient was given some IV sedation. The right wrist is infiltrated with lidocaine and right radial artery was entered using Seldinger technique. A 6-Austrian catheter was left in place and selective coronary arteriography was performed. Patient tolerated the procedure well. Patient went on to have stent placement of the LAD by Dr. Chacon. No immediate complications were noted. Conscious Sedation: Versed 1mg Fentanyl 50 g Duration 15minutes HEMODYNAMICS: The aortic pressure is 140/70. Left ventricle end-diastolic pressure was not measured SELECTIVE CORONARY ARTERIOGRAPHY: LEFT MAIN: Normal length and patent THE LEFT ANTERIOR DESCENDING CORONARY ARTERY:. Totally occluded in the proximal portion THE LEFT CIRCUMFLEX AND IS CORONARY ARTERY: Failed caliber vessel free of occlusive disease THE RIGHT CORONARY ARTERY:. Good Caliber vessel which is subselectively injected. There appears multiple lesions in the range of 50- 70%. The right coronary artery demonstrated after intervention is completed. LEFT VENTRICULOGRAPHY: Not performed FINAL IMPRESSION:. Total occlusion of the LAD. Multiple lesions RCA PLAN: Stent placement of the LAD. May consider studying RCA at the end of the intervention PROGNOSIS: []
[2020-06-02] MEDS ORDERED: IOPAMIDOL-370 125ML BTL INJ ONE (10:25)
[2020-06-02] MEDS ORDERED: IOPAMIDOL-370 100ML BTL INJ ONE (10:35)
[2020-06-02] MEDS ORDERED: HEPARIN SODIUM 1,000 UN/ML (10ML VL) IV ONE (10:36)
[2020-06-02] MEDS ORDERED: SODIUM CHLORIDE 0.9% 1,000 ML IV SCH (10:45)
[2020-06-02] MEDS ORDERED: RX INFO: IV CONTRAST WAS GIVEN 1 EACH MISC MISCELLANE PRN (10:45)
[2020-06-02] MEDS ORDERED: ZOLPIDEM 5 MG TAB PO PRN (10:45)
[2020-06-02] MEDS ORDERED: MAG HYDROX/AL HYDROX/SIMETH 30 ML CUP PO PRN (10:45)
[2020-06-02] MEDS ORDERED: ATROPINE SULFATE 0.1 MG/ML 10ML SYRINGE IV PRN (10:45)
[2020-06-02] MEDS ORDERED: NITROGLYCERIN SL TABS 0.4 MG TAB SUBLINGUAL PRN (10:45)
[2020-06-02 11:11] LABS: Cholesterol 120 mg/dL (<200); HDL Cholesterol 27 mg/dL (40-60); LDL Cholesterol,Calculated 63 mg/dL (0-99); Triglycerides 151 mg/dL (<150)
[2020-06-02 12:06] LABS: Glucose,Whole Blood 240 mg/dL (75-99)
--- NOTE | 2020-06-02 12:25 | PTCA ---
PERCUTANEOUSTRANS CORORONARY ANGIOGRAPHY Mr. Boss is 39-year-old male with history of chronic tobacco use, hypertension, diabetes mellitus, who presented with an acute anterior myocardial infarction, underwent cardiac catheterization by Dr. Pascal and was found to have totally occluded proximal LAD. In view of that, recommendation was made regarding angioplasty and stenting. The procedures, as well as risks, and complications were discussed with the patient who is in full understanding and agreement. PROCEDURE DETAILS: A 6-Prydeinig EBU 3.75 guiding catheter was introduced into the system. After cannulating the left main, a 0.014 balanced medium weight J-wire with the help of a straight FineCross microcatheter was introduced into the system. After crossing the lesion, positioned the wire distally, the microcatheter was removed and a 2.5 x 12 mm NC Euphora balloon was advanced. One inflation at 10 atmospheres was done. Following that, the balloon was removed and a 3.5 x 15 mm Xience Cassie stent was advanced, deployed and post dilated at 16 atmospheres. After the last inflation, after appropriate wait, the balloon and the guidewire were withdrawn back in the guiding catheter. Images were obtained, repeated. Those images reveal stable successful stenting. At that point, the guiding catheter, the balloon and the guidewire were removed. A 5-Prydeinig tight pigtail catheter was introduced in the left ventricle and left ventricular end-diastolic pressure was calculated. Following that, catheter and sheath were removed. Hemostasis was obtained with deployment of a TR band. There was no immediate complication. Patient was returned to his room in stable condition. Of note, at the end of the procedure, patient had almost total resolution of his chest discomfort. He received a total extra of 7000 units of intravenous heparin as well as oral loading dose of Brilinta. RESULTS: Successful stenting of the proximal LAD with reduction of stenosis from 100% to 0%. RECOMMENDATIONS: Patient will be continued on aspirin, Brilinta, beta blockers and statin. The importance of dual antiplatelet treatment and smoking cessation were discussed with the patient. He was in full understanding and agreement. Duration of the sedation: 25 minutes. MMODL / IJN: [id number] /
[2020-06-02] MEDS: INSULIN ASPART (NovoLOG) 100 UNIT/ML VIAL SQ SCH ×3 (12:27→21:33)
[2020-06-02] MEDS: METOPROLOL TARTRATE 25 MG TAB PO SCH ×2 (12:29→21:32)
[2020-06-02] MEDS: SPIRONOLACTONE 25 MG TAB PO SCH (12:29)
[2020-06-02 14:38] LABS: Glucose,Whole Blood 189 mg/dL (75-99)
[2020-06-02] MEDS ORDERED: IPRATROPIUM-ALBUTEROL 3 ML NEB INHALATION PRN (15:07)
[2020-06-02] MEDS: methylPREDNISolone SOD SUCCI 40 MG/ML 1 ML VIAL IV SCH (15:51)
[2020-06-02] MEDS: NICOTINE 21MG/24HR PATCH TRANSDERM SCH (15:52)
[2020-06-02] MEDS: PREGABALIN 75 MG CAP PO SCH (15:52)
[2020-06-02 17:40] LABS: Glucose,Whole Blood 180 mg/dL (75-99)
[2020-06-02] MEDS: FUROSEMIDE 20 MG TAB PO SCH (18:48)
[2020-06-02 20:58] LABS: Glucose,Whole Blood 262 mg/dL (75-99)
[2020-06-02] MEDS: TICAGRELOR 90 MG TAB PO SCH (21:33)
[2020-06-02] MEDS: ATORVASTATIN 80 MG TAB PO SCH (21:33)
[2020-06-03] MEDS: methylPREDNISolone SOD SUCCI 40 MG/ML 1 ML VIAL IV SCH ×2 (00:07→08:03)
[2020-06-03] MEDS: PREGABALIN 75 MG CAP PO SCH ×4 (00:09→21:00)
[2020-06-03 00:50] LABS: Appearance,Urine Clear (Clear); Bilirubin,Urine Negative (Negative); Blood,Urine Negative (Negative); Color,Urine Light Yellow; Glucose,Urine (UA) Negative (Negative); Ketones,Urine Negative (Negative); Leukocyte Esterase,Urine Negative (Negative); Nitrite,Urine Negative (Negative); PH, Urine 6.5 (5.0-8.0); Protein,Urine Negative (Negative); Urobilinogen,Urine <2.0 mg/dL (<2.0)
--- NOTE | 2020-06-03 01:30 | P.HPIM ---
History of Present Illness This is a pleasant 39 years old male with past medical history of heart failure, COPD, diabetes mellitus, GERD, hypertension, chronic back pain, peripheral vascular disease, diabetic neuropathy. Presents with chest pain, yesterday patient was in the hospital for chest pain and cardiac cath as recommended by market development analyst however patient does not want to wait and signed himself out leaving AMA. 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 Patient was started on bronchodilator and steroids. Chest x-ray on admission showed no acute process Review of Systems CONSTITUTIONAL: No fever, no malaise, no fatigue. HEENT: No recent visual problems or hearing problems. Denied any sore throat. CARDIOVASCULAR: No orthopnea, PND, no palpitations, no syncope. PULMONARY: No chest wall tenderness, no cough, no hemoptysis. GASTROINTESTINAL: No diarrhea, no nausea, no vomiting, no abdominal pain. Normoactive bowel sounds. NEUROLOGICAL: No headaches, no weakness, no numbness. HEMATOLOGICAL: Denies any bleeding or petechiae. GENITOURINARY: Denies any burning micturition, frequency, or urgency. MUSCULOSKELETAL/RHEUMATOLOGICAL: Denies any joint pain, swelling, or any muscle pain. ENDOCRINE: Denies any polyuria or polydipsia. Past Medical History Past Medical History: Chest Pain / Angina, Heart Failure, COPD, Diabetes Mellitus, GERD/Reflux, Hypertension Additional Past Medical History / Comment(s): Cervical fracture, chronic back pain, gout., PVD, diabetic neuropathy., sleep apnea- never got machine., chronic cough for 5-6 yrs- coughing up blood., Hx of Lap cholecystectomy 05/22/19- incision healing has steri strip ., has cut on left foot by little toe that is taking a long time to heal (stepped on wood). History of Any Multi-Drug Resistant Organisms: MRSA Date of last positivie culture/infection: 2006 MDRO Source:: "all over- systemic" Past Surgical History: Cholecystectomy Past Anesthesia/Blood Transfusion Reactions: No Reported Reaction Past Psychological History: Anxiety, Depression Smoking Status: Current every day smoker Past Alcohol Use History: Occasional Past Drug Use History: None Reported - Past Family History Mother Family Medical History: No Reported History Medications and Allergies Home Medications Medication Instructions Recorded Confirmed Type Atorvastatin [Lipitor] 20 mg PO DAILY 05/18/19 06/02/20 History Furosemide [Lasix] 80 mg PO DAILY 05/18/19 06/02/20 History Glimepiride [Amaryl] 1 mg PO AC-BRKFST 05/18/19 06/02/20 History Losartan Potassium [Cozaar] 100 mg PO DAILY 05/18/19 06/02/20 History metFORMIN HCL [Glucophage] 1,000 mg PO BID-W/MEALS 05/18/19 06/02/20 History traMADol HCl [Ultram] 50 - 100 mg PO TID PRN 05/18/19 06/02/20 History Pregabalin [Lyrica] 150 mg PO TID 05/31/20 06/02/20 History RX: Naproxen 500 mg PO BID PRN 05/31/20 06/02/20 History [place] (Unknown Strength) 1 tab PO ONCE PRN 06/02/20 06/02/20 History RX: Aspirin 325 mg PO ONCE PRN 06/02/20 06/02/20 History Allergies Allergy/AdvReac Type Severity Reaction Status Date / Time No Known Allergies Allergy Verified 06/02/20 09:31 Physical Exam Vitals: Vital Signs Temp Pulse Resp BP Pulse Ox 06/02/20 09:24 71 20 137/75 96 06/02/20 09:07 97.3 F L 73 20 147/88 94 L Intake and Output 06/01/20 06/02/20 06/02/20 22:59 06:59 14:59 Intake Total 200 Balance 200 Intake: IV 200 Other: Weight 181.437 kg -GENERAL: The patient is alert and oriented x3, not in any acute distress. Morbidly obese HEENT: Pupils are round and equally reacting to light. EOMI. No scleral icterus. No conjunctival pallor. Normocephalic, atraumatic. No pharyngeal erythema. No thyromegaly. CARDIOVASCULAR: S1 and S2 present. No murmurs, rubs, or gallops. -PULMONARY: Chest is clear to auscultation, bilateral expiratory wheezing ABDOMEN: Soft, nontender, nondistended, normoactive bowel sounds. No palpable organomegaly. MUSCULOSKELETAL: No joint swelling or deformity. EXTREMITIES: No cyanosis, clubbing, or pedal edema. NEUROLOGICAL: Gross neurological examination did not reveal any focal deficits. SKIN: No rashes. No petechiae Results CBC & Chem 7: 06/02/20 09:22 06/02/20 09:22 Labs: Abnormal Lab Results - Last 24 Hours (Table) 06/02/20 06/02/20 06/02/20 Range/Units 09:22 09:22 09:22 WBC 16.0 H (3.8-10.6) k/uL RDW 15.6 H (11.5-15.5) % Neutrophils # 13.1 H (1.3-7.7) k/uL APTT 44.7 H (22.0-30.0) sec BUN 21 H (9-20) mg/dL Glucose 282 H (74-99) mg/dL Alkaline Phosphatase 141 H (38-126) U/L Triglycerides (<150) mg/dL HDL Cholesterol (40-60) mg/dL Lipase 322 H (23-300) U/L 06/02/20 Range/Units 09:22 WBC (3.8-10.6) k/uL RDW (11.5-15.5) % Neutrophils # (1.3-7.7) k/uL APTT (22.0-30.0) sec BUN (9-20) mg/dL Glucose (74-99) mg/dL Alkaline Phosphatase (38-126) U/L Triglycerides 151 H (<150) mg/dL HDL Cholesterol 27 L (40-60) mg/dL Lipase (23-300) U/L Assessment and Plan Assessment: Acute anterior lateral STEMI status post PCI and stent placement to the LAD Possible Acute COPD exacerbation Nicotine dependence, patient counseled and he agrees to quit Mild leukocytosis, most reactive secondary to STEMI, no overt signs of infection, no need for antibiotic Diabetes mellitus Hypertension History of COPD History of heart failure Chronic back pain History of Peripheral vascular disease Diabetic neuropathy Plan: This is a pleasant 39 years old male who presents with acute STEMI. He status post stent in the LAD. Cardiology on the case. Continue with dual antiplatelet therapy Continue with steroids and to bronchodilator. Continue with nicotine patch Labs and medication were reviewed.. Continue same treatment. Continue with symptomatic treatment. Resume home medication. Monitor lytes and vitals. DVT and GI prophylaxis. Further recommendations depends on the clinical course of the patient DVT prophylaxis: Subcutaneous heparin GI Prophylaxis: Pepcid
[2020-06-03 04:25] LABS: African American GFR (CKD) >90 (>60 ml/min/1.73 sqM); Anion Gap 5 mmol/L; Blood Urea Nitrogen 16 mg/dL (9-20); Calcium 9.7 mg/dL (8.4-10.2); Carbon Dioxide 30 mmol/L (22-30); Chloride 102 mmol/L (98-107); Glucose 188 mg/dL (74-99); Non-African American GFR(CKD) >90 (>60 ml/min/1.73 sqM); Potassium 4.6 mmol/L (3.5-5.1); Sodium 137 mmol/L (137-145)
[2020-06-03 06:42] LABS: Glucose,Whole Blood 199 mg/dL (75-99)
[2020-06-03] MEDS: INSULIN ASPART (NovoLOG) 100 UNIT/ML VIAL SQ SCH ×4 (07:16→21:00)
[2020-06-03] MEDS: HEPARIN SODIUM,PORCINE 5,000 UNIT/ML 1 ML VIAL SQ SCH ×2 (08:03→21:00)
[2020-06-03] MEDS: NICOTINE 21MG/24HR PATCH TRANSDERM SCH (08:03)
[2020-06-03] MEDS: METOPROLOL TARTRATE 25 MG TAB PO SCH ×2 (08:04→21:00)
[2020-06-03] MEDS: GLIMEPIRIDE 1 MG TAB PO SCH (08:04)
[2020-06-03] MEDS: SPIRONOLACTONE 25 MG TAB PO SCH (08:04)
[2020-06-03] MEDS: FUROSEMIDE 20 MG TAB PO SCH (08:04)
[2020-06-03] MEDS: ASPIRIN 81 MG PO SCH (08:04)
[2020-06-03] MEDS: TICAGRELOR 90 MG TAB PO SCH ×2 (08:04→21:00)
[2020-06-03] MEDS: LOSARTAN 50 MG TAB PO SCH (08:04)
--- NOTE | 2020-06-03 08:37 | XR ---
EXAMINATION TYPE: XR chest 1V portable DATE OF EXAM: 06/03/2020 COMPARISON: 06/02/2020 INDICATION: Short of breath TECHNIQUE: Single frontal view of the chest is obtained. FINDINGS: The heart size is normal. The pulmonary vasculature is somewhat prominent. Diffuse increased lung markings are present slightly greater centrally. Correlate for atypical pneumo mariam or atypical pulmonary edema. Follow-up can be performed. IMPRESSION: 1. Mild increased central lung markings with prominence of the vasculature. Correlate for early pulmo nary edema. Infectious etiology is not excluded
[2020-06-03] MEDS ORDERED: FAMOTIDINE 20 MG/2 ML VIAL IV SCH (09:00)
[2020-06-03] MEDS: FUROSEMIDE 10 MG/ML 4 ML VIAL IV SCH ×2 (09:54→18:49)
[2020-06-03] MEDS ORDERED: predniSONE 20 MG TAB PO SCH (10:45)
--- NOTE | 2020-06-03 11:00 | ECHOF ---
Referral Reason:mi MEASUREMENTS -------- HEIGHT: 177.8 cm WEIGHT: 172.8 kg BP: 124/76 IVSd: 1.6 cm (0.6 - 1.1) LVIDd: 5.0 cm (3.9 - 5.3) LVPWd: 1.4 cm (0.6 - 1.1) EDV(Teich): 121 ml IVSs: 1.8 cm LVIDs: 2.9 cm LVPWs: 2.0 cm %IVS Thck: 14 % ESV(Teich): 32 ml EF(Teich): 73 % %FS: 42 % SV(Teich): 89 ml LA Diam: 3.9 cm (2.7 - 3.8) RVIDd: 3.4 cm (< 3.3) Ao Diam: 3.5 cm (2.0 - 3.7) AV Cusp: 2.3 cm (1.5 - 2.6) EPSS: 0.7 cm MV E Albert: 1.11 m/s MV DecT: 171 ms MV Dec [place]: 6.5 m/s MV A Albert: 0.74 m/s MV E/A Ratio: 1.51 MV PHT: 50 ms TR Vmax: 2.96 m/s TR maxP.13 mmHg RAP: 5.00 mmHg RVSP: 40.13 mmHg MV EF SLOPE: 88.39 mm/s (70 - 150) MV EXCURSION: 18.05 mm (> 18.000) FINDINGS -------- Sinus rhythm. This was a technically adequate study. The left ventricular size is normal. There is moderate concentric left ventricular hypertrophy. O verall left ventricular systolic function is moderately impaired with, an EF between 35 - 40 %. Mid anterior LV wall motion is hypokinetic. Mid anteroseptal LV wall motion is hypokinetic. Apical anterior LV wall motion is hypokinetic. Apical lateral LV wall motion is hypokinetic. Apical i nferior LV wall motion is hypokinetic. Apical septum LV wall motion is hypokinetic. The right ventricle is mildly enlarged. The left atrium is normal in size. The right atrial size is normal. Lumason used The aortic valve is trileaflet, and appears structurally normal. No aortic stenosis or regurgitation. The mitral valve is normal. There is trace to mild mitral regurgitation. Mild tricuspid regurgitation present. There is mild pulmonary hypertension. The right ventricular systolic pressure, as measured by Doppler, is 40.13mmHg. The pulmonic valve was not well visualized. The aortic root size is normal. There is no pericardial effusion. CONCLUSIONS -------- 1. This was a technically adequate study. 2. There is moderate concentric left ventricular hypertrophy. 3. Overall left ventricular systolic function is moderately impaired with, an EF between 35 - 40 %. 4. Mid anterior LV wall motion is hypokinetic. 5. Mid anteroseptal LV wall motion is hypokinetic. 6. Apical anterior LV wall motion is hypokinetic. 7. Apical lateral LV wall motion is hypokinetic. 8. Apical inferior LV wall motion is hypokinetic. 9. Apical septum LV wall motion is hypokinetic. 10. The right ventricle is mildly enlarged. 11. The left atrium is normal in size. 12. Lumason used 13. The aortic valve is trileaflet, and appears structurally normal. No aortic stenosis or regurgitat ion. 14. There is trace to mild mitral regurgitation. 15. Mild tricuspid regurgitation present. 16. There is mild pulmonary hypertension. 17. There is no pericardial effusion. KISS SETTER HAND: Miriam Snyder RDCS
[2020-06-03 11:05] VITALS: BMI 54.8
[2020-06-03 11:55] LABS: Glucose,Whole Blood 277 mg/dL (75-99)
--- NOTE | 2020-06-03 12:31 | P.PN ---
Subjective Progress Note Date: 06/03/20 This 39-year-old gentleman with history of hypertension, diabetes mellitus, peripheral vascular disease who had stent placement of the LAD in the setting of acute anterior wall UT, yesterday. Patient is feeling better. Denies any chest pain. Does complain of tight feeling in the chest. A chest x-ray showed evidence of mild pulmonary congestion. Denies any chest pain. No arrhythmias are noted. A troponin went up to 130. His echocardiogram showed hypokinesis of the anteroapical and septal areas with an ejection fraction of 35-40%. Patient is on IV diuretics and Aldactone along with beta blockers and ARB. Patient tolerating medication well. He is sitting up in the chair. His puncture site is healing well. He'll continue current medical therapy. We'll increase activity. Possibly transfer to telemetry unit in 24 hours Objective - Vital Signs Vital signs: Vital Signs Temp 98 F 06/03/20 12:00 Pulse 69 06/03/20 12:00 Resp 18 06/03/20 12:00 BP 126/81 06/03/20 11:00 Pulse Ox 95 06/03/20 12:00 Intake & Output 06/02/20 06/03/20 06/03/20 18:59 06:59 18:59 Intake Total 350 240 480 Output Total 700 1690 1425 Balance -350 -7030 -945 Weight 181.437 kg 173.2 kg 173.2 kg Intake: IV 200 Intake, IV Titration 150 Amount Sodium Chloride 0.9% 1, 150 000 ml @ 75 mls/hr IV . [id number] [facility] Rx#:[id number] Oral 240 480 Output: Urine 700 1690 1425 Other: # Voids 1 - Exam GENERAL EXAM: Patient is alert and oriented and doesn't appear to be in any acute distress HEENT: Normocephalic. Normal reaction of pupils, equal size, normal range of extraocular motion. No erythema or exudates in the throat. NECK: No masses, no nuchal rigidity. CHEST: No chest wall deformity. LUNGS: Equal air entry with no crackles or wheeze. HEART: S1 and S2 normal with no audible mumurs or gallops. Regular rhythm, femorals equal on both sides.. ABDOMEN: No hepatosplenomegaly, normal bowel sounds, no guarding or rigidity. SKIN: No rashes CENTRAL NERVOUS SYSTEM: No focal deficits. EXTREMITIES: No cyanosis, clubbing or edema. PUNCTURE SITE: Right wrist area is soft without any hematoma. Radial pulses preserved - Labs CBC & Chem 7: 06/02/20 09:22 06/03/20 03:36 Labs: Abnormal Lab Results - Last 24 Hours (Table) 06/02/20 06/02/20 06/02/20 Range/Units 14:33 14:36 17:38 Glucose (74-99) mg/dL POC Glucose (mg/dL) 189 H 180 H (75-99) mg/dL Troponin I 121.000 H* (0.000-0.034) ng/mL 06/02/20 06/02/20 06/03/20 Range/Units 18:06 20:56 03:36 Glucose 188 H (74-99) mg/dL POC Glucose (mg/dL) 262 H (75-99) mg/dL Troponin I 139.000 H* (0.000-0.034) ng/mL 06/03/20 06/03/20 Range/Units 06:40 11:53 Glucose (74-99) mg/dL POC Glucose (mg/dL) 199 H 277 H (75-99) mg/dL Troponin I (0.000-0.034) ng/mL Assessment and Plan (1) Essential hypertension Current Visit: Yes Status: Acute Code(s): I10 - ESSENTIAL (PRIMARY) HYPERTENSION SNOMED Code(s): 68174867 (2) STEMI (ST elevation myocardial infarction) Current Visit: Yes Status: Acute Code(s): I21.3 - ST ELEVATION (STEMI) MYOCARDIAL INFARCTION OF [facility] SITE SNOMED Code(s): 12020860 (3) Non-insulin dependent diabetes mellitus Current Visit: Yes Status: Acute Code(s): QBE8364 - SNOMED Code(s): 99889683 (4) Obese Current Visit: Yes Status: Acute Code(s): E66.9 - OBESITY, UNSPECIFIED SNOMED Code(s): 259931507 Plan: Patient is status post stent placement of the LAD. Clinically feeling good. Chest x-ray evidence of mild CHF. Ejection fraction 35-40% with continue cu rrent maximum medical therapy. Increase activity as tolerated
[2020-06-03 16:31] LABS: Glucose,Whole Blood 188 mg/dL (75-99)
[2020-06-03 20:35] LABS: Glucose,Whole Blood 282 mg/dL (75-99)
[2020-06-03] MEDS: ATORVASTATIN 80 MG TAB PO SCH (21:00)
[2020-06-03] MEDS: FAMOTIDINE 20 MG TAB PO SCH (21:03)
--- NOTE | 2020-06-03 22:03 | P.PN ---
Subjective This is a pleasant 39 years old male with past medical history of heart failure, COPD, diabetes mellitus, GERD, hypertension, chronic back pain, peripheral vascular disease, diabetic neuropathy. Presents with chest pain, yesterday patient was in the hospital for chest pain and cardiac cath as recommended by musical instrument maker however patient does not want to wait and signed himself out leaving AMA. Earlier this morning around 6:00 he started developing chest pain and dyspnea and was getting severe sore decided to come to the hospital where he found an acute STEMI and an STEMI alert has been activated and patient was taken emergently to the cardiac cath where he underwent PCI by cardiology team with stent placement in the left anterior descending artery Also since lube attendant he was complaining of from dyspnea and although after the cardiac cath his chest pain improved however he still dyspneic, on examination he has bilateral expiratory wheezing even his extensive period of smoking in the past and currently. Patient was started on bronchodilator and steroids. Chest x-ray on admission showed no acute process 06/03/2020 Patient was sitting at bedside, breathing easier, wheezing is significantly improved. No coughing. No chest pain Echocardiogram showing ejection fraction of 35-40% with wall hypokinesia Chest x-ray showing mild increased lung markings with prominence of the vasculature. Correlate for early pulmonary edema. Infectious HG excluded. Poor calcitonin is normal at 0.04 make infection less likely. No need for antibiotics now Cartilage team on the case Review of Systems CONSTITUTIONAL: No fever, no malaise, no fatigue. HEENT: No recent visual problems or hearing problems. Denied any sore throat. CARDIOVASCULAR: No orthopnea, PND, no palpitations, no syncope. PULMONARY: No chest wall tenderness, no cough, no hemoptysis. GASTROINTESTINAL: No diarrhea, no nausea, no vomiting, no abdominal pain. Norm oactive bowel sounds. NEUROLOGICAL: No headaches, no weakness, no numbness. HEMATOLOGICAL: Denies any bleeding or petechiae. Active Medications Generic Name Dose Route Start Last Admin Trade Name Freq PRN Reason Stop Dose Admin Al Hydroxide/Mg Hydroxide 30 ml 06/02/20 10:45 Mag Hydrox/Al Hydrox/Simeth 30 Ml Cup PO Q4HR PRN Heartburn Albuterol/Ipratropium 3 ml 06/02/20 15:07 06/02/20 15:28 Ipratropium-Albuterol 3 Ml Neb INHALATION 3 ml RT-Q4H PRN Administration Dyspnea Aspirin 81 mg 06/03/20 09:00 06/03/20 08:04 Aspirin 81 Mg PO 81 mg DAILY AKANKSHA Administration Atorvastatin Calcium 80 mg 06/02/20 21:00 06/03/20 21:00 Atorvastatin 80 Mg Tab PO 80 mg HS AKANKSHA Administration Atropine Sulfate 0.5 mg 06/02/20 10:45 Atropine Sulfate 0.1 Mg/Ml 10ml Syringe IV ONCE PRN Symptomatic Bradycardia Famotidine 20 mg 06/03/20 21:00 06/03/20 21:03 Famotidine 20 Mg Tab PO 20 mg Q12HR AKANKSHA Administration Furosemide 40 mg 06/03/20 10:00 06/03/20 18:49 Furosemide 10 Mg/Ml 4 Ml Vial IV 40 mg Q12HR AKANKSHA Administration Glimepiride 1 mg 06/03/20 07:30 06/03/20 08:04 Glimepiride 1 Mg Tab PO 1 mg [id number] AKANKSHA Administration Heparin Sodium (Porcine) 5,000 unit 06/03/20 09:00 06/03/20 21:00 Heparin Sodium,Porcine 5,000 Unit/Ml 1 Ml Vial SQ 5,000 unit Q12HR AKANKSHA Administration Insulin Aspart 0 unit 06/02/20 12:30 06/03/20 21:00 Insulin Aspart (Novolog) 100 Unit/Ml Vial SQ 11 unit ACHS AKANKSHA Administration Protocol Losartan Potassium 100 mg 06/03/20 09:00 06/03/20 08:04 Losartan 50 Mg Tab PO 100 mg DAILY AKANKSHA Administration Metoprolol Tartrate 25 mg 06/02/20 11:00 06/03/20 21:00 Metoprolol Tartrate 25 Mg Tab PO 25 mg BID AKANKSHA Administration Miscellaneous Information 1 each 06/02/20 10:45 Rx Info: Iv Contrast Was Given 1 Each Misc MISCELLANE 06/04/20 10:45 DAILY PRN Per Protocol Naloxone HCl 0.2 mg 06/02/20 09:36 Naloxone 0.4 Mg/Ml 1 Ml Vial IV Q2M PRN Opioid Reversal Nicotine 1 patch 06/02/20 15:15 06/03/20 08:03 Nicotine 21mg/24hr Patch TRANSDERM 1 patch DAILY AKANKSHA Administration Nitroglycerin 0.4 mg 06/02/20 10:45 Nitroglycerin Sl Tabs 0.4 Mg Tab SUBLINGUAL Q5M PRN Chest Pain Prednisone 40 mg 06/03/20 10:45 06/03/20 12:07 Prednisone 20 Mg Tab PO 40 mg DAILY AKANKSHA Administration Pregabalin 150 mg 06/02/20 16:00 06/03/20 21:00 Pregabalin 75 Mg Cap PO 150 mg TID AKANKSHA Administration Spironolactone 25 mg 06/02/20 11:00 06/03/20 08:04 Spironolactone 25 Mg Tab PO 25 mg DAILY AKANKSHA Administration Ticagrelor 90 mg 06/02/20 21:00 06/03/20 21:00 Ticagrelor 90 Mg Tab PO 90 mg BID AKANKSHA Administration Zolpidem Tartrate 5 mg 06/02/20 10:45 Zolpidem 5 Mg Tab PO HS PRN Insomnia Objective - Vital Signs Vital signs: Vital Signs Temp 97.8 F 06/03/20 20:32 Pulse 78 06/03/20 20:32 Resp 18 06/03/20 20:32 BP 102/68 06/03/20 20:32 Pulse Ox 95 06/03/20 20:32 Intake & Output 06/03/20 06/03/20 06/04/20 06:59 18:59 06:59 Intake Total 240 840 120 Output Total 1690 1575 1000 Balance -1914 -735 -670 Weight 173.2 kg 173.2 kg Intake: Oral 240 840 120 Output: Urine 1690 1575 1000 Other: Voiding Method Urinal - Labs CBC & Chem 7: 06/02/20 09:22 06/03/20 03:36 Labs: Abnormal Lab Results - Last 24 Hours (Table) 06/03/20 06/03/20 06/03/20 Range/Units 03:36 06:40 11:53 Glucose 188 H (74-99) mg/dL POC Glucose (mg/dL) 199 H 277 H (75-99) mg/dL 06/03/20 06/03/20 Range/Units 16:30 20:33 Glucose (74-99) mg/dL POC Glucose (mg/dL) 188 H 282 H (75-99) mg/dL Assessment and Plan Assessment: Acute anterior lateral STEMI status post PCI and stent placement to the LAD Ischemic cardiomyopathy with ejection fraction of 35-40% Possible mild Acute COPD exacerbation Nicotine dependence, patient counseled and, Improved he agrees to quit Mild leukocytosis, most reactive secondary to STEMI, no overt signs of infection, no need for antibiotic Diabetes mellitus Hypertension History of COPD History of heart failure Chronic back pain History of Peripheral vascular disease Diabetic neuropathy Plan: This is a pleasant 39 years old male who presents with acute STEMI. He status post stent in the LAD. Cardiology on the case. Continue with dual antiplatelet therapy Continue with steroids and to bronchodilator. Continue with nicotine patch. Change Lasix to IV Labs and medication were reviewed.. Continue same treatment. Continue with symptomatic treatment. Resume home medication. Monitor lytes and vitals. DVT and GI prophylaxis. Further recommendations depends on the clinical course of the patient DVT prophylaxis: Subcutaneous heparin GI Prophylaxis: Pepcid
[2020-06-04 06:24] LABS: Glucose,Whole Blood 143 mg/dL (75-99)
[2020-06-04] MEDS: GLIMEPIRIDE 1 MG TAB PO SCH (06:54)
[2020-06-04] MEDS: INSULIN ASPART (NovoLOG) 100 UNIT/ML VIAL SQ SCH ×4 (06:55→20:39)
[2020-06-04] MEDS: FUROSEMIDE 10 MG/ML 4 ML VIAL IV SCH (08:45)
[2020-06-04] MEDS: HEPARIN SODIUM,PORCINE 5,000 UNIT/ML 1 ML VIAL SQ SCH ×2 (08:45→20:39)
[2020-06-04] MEDS: NICOTINE 21MG/24HR PATCH TRANSDERM SCH (08:46)
[2020-06-04] MEDS: FAMOTIDINE 20 MG TAB PO SCH ×2 (08:46→20:37)
[2020-06-04] MEDS: predniSONE 10 MG TAB PO SCH (08:46)
[2020-06-04] MEDS: SPIRONOLACTONE 25 MG TAB PO SCH (08:46)
[2020-06-04] MEDS: TICAGRELOR 90 MG TAB PO SCH ×2 (08:46→20:37)
[2020-06-04] MEDS: LOSARTAN 50 MG TAB PO SCH (08:46)
[2020-06-04] MEDS: ASPIRIN 81 MG PO SCH (08:46)
[2020-06-04] MEDS: PREGABALIN 75 MG CAP PO SCH ×3 (08:46→21:49)
[2020-06-04] MEDS: METOPROLOL TARTRATE 25 MG TAB PO SCH ×2 (08:47→20:37)
[2020-06-04 09:37] LABS: African American GFR (CKD) >90 (>60 ml/min/1.73 sqM); Anion Gap 5 mmol/L; Blood Urea Nitrogen 26 mg/dL (9-20); Calcium 8.9 mg/dL (8.4-10.2); Carbon Dioxide 34 mmol/L (22-30); Chloride 101 mmol/L (98-107); Glucose 115 mg/dL (74-99); Magnesium 1.9 mg/dL (1.6-2.3); Non-African American GFR(CKD) >90 (>60 ml/min/1.73 sqM); Sodium 140 mmol/L (137-145)
[2020-06-04 09:41] LABS: Basophils # (A) 0.1 k/uL (0-0.2); Basophils % (A) 0 %; Eosinophils # (A) 0.1 k/uL (0-0.7); Eosinophils % (A) 1 %; HCT 40.5 % (39.0-53.0); HGB 13.5 gm/dL (13.0-17.5); Lymphocytes # (A) 4.6 k/uL (1.0-4.8); Lymphocytes % (A) 20 %; MCH 28.6 pg (25.0-35.0); MCHC 33.3 g/dL (31.0-37.0); MCV 85.9 fL (80.0-100.0); Mean Platelet Volume 7.2; Monocytes # (A) 1.3 k/uL (0-1.0); Monocytes % (A) 6 %; Neutrophils # (A) 16.3 k/uL (1.3-7.7); Neutrophils % (A) 71 %; Platelet Count 280 k/uL (150-450); RBC 4.72 m/uL (4.30-5.90); RDW 15.7 % (11.5-15.5); WBC 22.8 k/uL (3.8-10.6)
[2020-06-04 11:25] LABS: Glucose,Whole Blood 258 mg/dL (75-99)
--- NOTE | 2020-06-04 14:05 | P.PN ---
Subjective Progress Note Date: 06/04/20 CHIEF COMPLAINT: Chest pain HISTORY OF PRESENT ILLNESS: Patient is status post cardiac catheterization with PCI to the LAD. Patient examined this morning at the bedside. Patient denies chest pain or pressure. He denies shortness of breath. He remains on IV Lasix. Fluid balance over the last 24 hours is -1900 mL. Creatinine today 0.83. Patient continues to have some lower extremity edema which she states is chronic for him and appears to be at his baseline. PHYSICAL EXAM: VITAL SIGNS: Reviewed. GENERAL: Well-developed in no acute distress. NECK: Supple. No JVD or thyromegaly LUNGS: Respirations even and unlabored. Lungs diminished. HEART: Regular rate and rhythm. S1 and S2 heard. EXTREMITIES: Normal range of motion. No clubbing or cyanosis. Peripheral pulses intact. 1+ bilateral lower extremity edema with chronic discoloration. Right radial cath site with pulse present. ASSESSMENT: STEMI, status post PCI to LAD Acute systolic congestive heart failure, EF 35-40% Hypertension Diabetes mellitus, type II Obesity: BMI 54.4 Nicotine dependence PLAN: Continue current cardiac medications Transition Lasix to oral dosin mg daily Possible discharge home tomorrow Nurse practitioner note has been reviewed by physician. Signing provider agrees with the documented findings, assessment, and plan of care. Objective - Vital Signs Vital signs: Vital Signs Temp 97.7 F 06/04/20 08:48 Pulse 57 L 06/04/20 08:48 Resp 16 06/04/20 08:48 BP 110/55 06/04/20 08:48 Pulse Ox 93 L 06/04/20 08:48 Intake & Output 06/03/20 06/04/20 06/04/20 18:59 06:59 18:59 Intake Total 840 660 480 Output Total 1575 1840 1100 Balance -340 -2009 -531 Weight 173.2 kg 172.1 kg Intake: Oral 840 660 480 Output: Urine 1575 1840 1100 Other: Voiding Method Urinal # Voids 1 2 - Labs CBC & Chem 7: 06/04/20 08:50 06/04/20 08:50 Labs: Abnormal Lab Results - Last 24 Hours (Table) 06/03/20 06/03/20 06/04/20 Range/Units 16:30 20:33 06:18 WBC (3.8-10.6) k/uL RDW (11.5-15.5) % Neutrophils # (1.3-7.7) k/uL Monocytes # (0-1.0) k/uL Carbon Dioxide (22-30) mmol/L BUN (9-20) mg/dL Glucose (74-99) mg/dL POC Glucose (mg/dL) 188 H 282 H 143 H (75-99) mg/dL 06/04/20 06/04/20 06/04/20 Range/Units 08:50 08:50 11:24 WBC 22.8 H (3.8-10.6) k/uL RDW 15.7 H (11.5-15.5) % Neutrophils # 16.3 H (1.3-7.7) k/uL Monocytes # 1.3 H (0-1.0) k/uL Carbon Dioxide 34 H (22-30) mmol/L BUN 26 H (9-20) mg/dL Glucose 115 H (74-99) mg/dL POC Glucose (mg/dL) 258 H (75-99) mg/dL
[2020-06-04 16:46] LABS: Glucose,Whole Blood 243 mg/dL (75-99)
[2020-06-04 19:47] VITALS: RESP 18
[2020-06-04 20:17] LABS: Glucose,Whole Blood 136 mg/dL (75-99)
[2020-06-04] MEDS: ATORVASTATIN 80 MG TAB PO SCH (20:37)
--- NOTE | 2020-06-04 20:42 | P.PN ---
Subjective This is a pleasant 39 years old male with past medical history of heart failure, COPD, diabetes mellitus, GERD, hypertension, chronic back pain, peripheral vascular disease, diabetic neuropathy. Presents with chest pain, yesterday patient was in the hospital for chest pain and cardiac cath as recommended by fish and game club manager however patient does not want to wait and signed himself out leaving AMA. Earlier this morning around 6:00 he started developing chest pain and dyspnea and was getting severe sore decided to come to the hospital where he found an acute STEMI and an STEMI alert has been activated and patient was taken emergently to the cardiac cath where he underwent PCI by cardiology team with stent placement in the left anterior descending artery Also since kinesiology internship he was complaining of from dyspnea and although after the cardiac cath his chest pain improved however he still dyspneic, on examination he has bilateral expiratory wheezing even his extensive period of smoking in the past and currently. Patient was started on bronchodilator and steroids. Chest x-ray on admission showed no acute process 06/03/2020 Patient was sitting at bedside, breathing easier, wheezing is significantly improved. No coughing. No chest pain Echocardiogram showing ejection fraction of 35-40% with wall hypokinesia Chest x-ray showing mild increased lung markings with prominence of the vasculature. Correlate for early pulmonary edema. Infectious HG excluded. Poor calcitonin is normal at 0.04 make infection less likely. No need for antibiotics now Cartilage team on the case 06/04/2020 Patient was doing very well today in the ICU, he feels much better, his breathing easily he states "I feel like a median bucks" , he denies chest pain or dyspnea, no other complaint He is saturating high 90s on room air, his hemodynamics are stable. He has leukocytosis of 22.8, mostly secondary to steroid effect as well as reactive secondary to his heart attack. Prednisone is Dr. to 30 mg daily. Chest auscultation is clear. Discussed the case with cardiology team we will lower dose of Lasix to 40 mg by mouth daily Patient is updated with the conditions and findings and he agrees with the plan. Possible discharge in 24 hours Objective - Vital Signs Vital signs: Vital Signs Temp 97.7 F 06/04/20 08:48 Pulse 57 L 06/04/20 08:48 Resp 16 06/04/20 08:48 BP 110/55 06/04/20 08:48 Pulse Ox 93 L 06/04/20 08:48 Intake & Output 06/03/20 06/04/20 06/04/20 18:59 06:59 18:59 Intake Total 840 660 480 Output Total 1575 1840 1100 Balance -735 -1560 -398 Weight 173.2 kg 172.1 kg Intake: Oral 840 660 480 Output: Urine 1575 1840 1100 Other: Voiding Method Urinal # Voids 1 2 - Exam GENERAL: The patient is alert and oriented x3, not in any acute distress. Well developed, well nourished. HEENT: Pupils are round and equally reacting to light. EOMI. No scleral icterus. No conjunctival pallor. Normocephalic, atraumatic. No pharyngeal erythema. No thyromegaly. CARDIOVASCULAR: S1 and S2 present. No murmurs, rubs, or gallops. PULMONARY: Chest is clear to auscultation, no wheezing or crackles. ABDOMEN: Soft, nontender, nondistended, normoactive bowel sounds. No palpable organomegaly. MUSCULOSKELETAL: No joint swelling or deformity. EXTREMITIES: No cyanosis, clubbing, or pedal edema. NEUROLOGICAL: Gross neurological examination did not reveal any focal deficits. SKIN: No rashes. no petechiae. - Labs CBC & Chem 7: 06/04/20 08:50 06/04/20 08:50 Labs: Abnormal Lab Results - Last 24 Hours (Table) 06/03/20 06/03/20 06/04/20 Range/Units 16:30 20:33 06:18 WBC (3.8-10.6) k/uL RDW (11.5-15.5) % Neutrophils # (1.3-7.7) k/uL Monocytes # (0-1.0) k/uL Carbon Dioxide (22-30) mmol/L BUN (9-20) mg/dL Glucose (74-99) mg/dL POC Glucose (mg/dL) 188 H 282 H 143 H (75-99) mg/dL 06/04/20 06/04/20 06/04/20 Range/Units 08:50 08:50 11:24 WBC 22.8 H (3.8-10.6) k/uL RDW 15.7 H (11.5-15.5) % Neutrophils # 16.3 H (1.3-7.7) k/uL Monocytes # 1.3 H (0-1.0) k/uL Carbon Dioxide 34 H (22-30) mmol/L BUN 26 H (9-20) mg/dL Glucose 115 H (74-99) mg/dL POC Glucose (mg/dL) 258 H (75-99) mg/dL Assessment and Plan Assessment: Acute anterior lateral STEMI status post PCI and stent placement to the LAD Ischemic cardiomyopathy with ejection fraction of 35-40% Possible mild Acute COPD exacerbation Nicotine dependence, patient counseled and, Improved he agrees to quit Mild leukocytosis, most reactive secondary to STEMI, no overt signs of infec tion, no need for antibiotic Diabetes mellitus Hypertension History of COPD History of heart failure Chronic back pain History of Peripheral vascular disease Diabetic neuropathy Plan: This is a pleasant 39 years old male who presents with acute STEMI. He status post stent in the LAD. Cardiology on the case. Continue with dual antiplatelet therapy Continue with steroids and to bronchodilator. Continue with nicotine patch. Change Lasix to by mouth Labs and medication were reviewed.. Continue same treatment. Continue with symptomatic treatment. Resume home medication. Monitor lytes and vitals. DVT and GI prophylaxis. Further recommendations depends on the clinical course of the patient DVT prophylaxis: Subcutaneous heparin GI Prophylaxis: Pepcid
[2020-06-05 06:28] LABS: Glucose,Whole Blood 127 mg/dL (75-99)
[2020-06-05] MEDS: INSULIN ASPART (NovoLOG) 100 UNIT/ML VIAL SQ SCH ×2 (06:38→11:33)
[2020-06-05] MEDS: GLIMEPIRIDE 1 MG TAB PO SCH (06:43)
[2020-06-05] MEDS: LOSARTAN 50 MG TAB PO SCH (08:21)
[2020-06-05] MEDS: HEPARIN SODIUM,PORCINE 5,000 UNIT/ML 1 ML VIAL SQ SCH (08:21)
[2020-06-05] MEDS: predniSONE 10 MG TAB PO SCH (08:21)
[2020-06-05] MEDS: TICAGRELOR 90 MG TAB PO SCH (08:21)
[2020-06-05] MEDS: METOPROLOL TARTRATE 25 MG TAB PO SCH (08:21)
[2020-06-05] MEDS: PREGABALIN 75 MG CAP PO SCH (08:21)
[2020-06-05] MEDS: FAMOTIDINE 20 MG TAB PO SCH (08:21)
[2020-06-05] MEDS: ASPIRIN 81 MG PO SCH (08:21)
[2020-06-05] MEDS: SPIRONOLACTONE 25 MG TAB PO SCH (08:21)
[2020-06-05] MEDS: NICOTINE 21MG/24HR PATCH TRANSDERM SCH (08:22)
[2020-06-05 08:49] LABS: Basophils # (A) 0.1 k/uL (0-0.2); Basophils % (A) 1 %; Eosinophils # (A) 0.2 k/uL (0-0.7); Eosinophils % (A) 1 %; HCT 44.2 % (39.0-53.0); HGB 14.5 gm/dL (13.0-17.5); Lymphocytes # (A) 5.6 k/uL (1.0-4.8); Lymphocytes % (A) 29 %; MCH 28.3 pg (25.0-35.0); MCHC 32.8 g/dL (31.0-37.0); MCV 86.2 fL (80.0-100.0); Mean Platelet Volume 7.1; Monocytes # (A) 1.2 k/uL (0-1.0); Monocytes % (A) 6 %; Neutrophils # (A) 12.2 k/uL (1.3-7.7); Neutrophils % (A) 62 %; Platelet Count 268 k/uL (150-450); RBC 5.13 m/uL (4.30-5.90); RDW 15.5 % (11.5-15.5); WBC 19.5 k/uL (3.8-10.6)
[2020-06-05 08:53] LABS: African American GFR (CKD) >90 (>60 ml/min/1.73 sqM); Anion Gap 5 mmol/L; Blood Urea Nitrogen 30 mg/dL (9-20); Carbon Dioxide 34 mmol/L (22-30); Chloride 100 mmol/L (98-107); Glucose 165 mg/dL (74-99); Magnesium 1.9 mg/dL (1.6-2.3); Non-African American GFR(CKD) >90 (>60 ml/min/1.73 sqM); Potassium 3.8 mmol/L (3.5-5.1); Sodium 139 mmol/L (137-145)
[2020-06-05] MEDS ORDERED: FUROSEMIDE 40 MG TAB PO SCH (09:00)
[2020-06-05 10:39] LABS: Reactive Lymphocytes Present
[2020-06-05 11:02] VITALS: BP 125/64; PULSE 77; TEMP 97.2
[2020-06-05 11:25] LABS: Glucose,Whole Blood 135 mg/dL (75-99)
--- NOTE | 2020-06-05 14:55 | P.PN ---
Subjective Progress Note Date: 06/05/20 CHIEF COMPLAINT: Chest pain HISTORY OF PRESENT ILLNESS: Patient is status post cardiac catheterization with PCI to the LAD. Patient examined this morning at the bedside. Patient denies chest pain or pressure. He denies shortness of breath. Vital signs are stable. PHYSICAL EXAM: VITAL SIGNS: Reviewed. GENERAL: Well-developed in no acute distress. NECK: Supple. No JVD or thyromegaly LUNGS: Respirations even and unlabored. Lungs diminished. HEART: Regular rate and rhythm. S1 and S2 heard. EXTREMITIES: Normal range of motion. No clubbing or cyanosis. Peripheral pulses intact. 1+ bilateral lower extremity edema with chronic discoloration. Right radial cath site with pulse present. ASSESSMENT: STEMI, status post PCI to LAD Acute systolic congestive heart failure, EF 35-40% Hypertension Diabetes mellitus, type II Obesity: BMI 54.4 Nicotine dependence PLAN: Continue current cardiac medications Stable for discharge home today Patient to follow up on an outpatient basis Nurse practitioner note has been reviewed by physician. Signing provider agrees with the documented findings, assessment, and plan of care. Objective - Vital Signs Vital signs: Vital Signs Temp 97.2 F L 06/05/20 11:01 Pulse 77 06/05/20 11:01 Resp 18 06/05/20 11:01 BP 125/64 06/05/20 11:01 Pulse Ox 95 06/05/20 11:01 Intake & Output 06/04/20 06/05/20 06/05/20 18:59 06:59 18:59 Intake Total 488 402 9141 Output Total 1100 Balance -713 630 4543 Weight 171.8 kg Intake: Oral 911 389 3169 Output: Urine 1100 Other: # Voids 2 - Labs CBC & Chem 7: 06/05/20 08:07 06/05/20 08:07 Labs: Abnormal Lab Results - Last 24 Hours (Table) 06/04/20 06/04/20 06/05/20 Range/Units 16:45 20:16 06:27 WBC (3.8-10.6) k/uL Neutrophils # (1.3-7.7) k/uL Lymphocytes # (1.0-4.8) k/uL Monocytes # (0-1.0) k/uL Carbon Dioxide (22-30) mmol/L BUN (9-20) mg/dL Glucose (74-99) mg/dL POC Glucose (mg/dL) 243 H 136 H 127 H (75-99) mg/dL 06/05/20 06/05/20 06/05/20 Range/Units 08:07 08:07 11:23 WBC 19.5 H (3.8-10.6) k/uL Neutrophils # 12.2 H (1.3-7.7) k/uL Lymphocytes # 5.6 H (1.0-4.8) k/uL Monocytes # 1.2 H (0-1.0) k/uL Carbon Dioxide 34 H (22-30) mmol/L BUN 30 H (9-20) mg/dL Glucose 165 H (74-99) mg/dL POC Glucose (mg/dL) 135 H (75-99) mg/dL
== END 2020-06-05 15:39 | disposition home or self-care (01) | DRG 246 ==
LOC: EC 09:05 → 2SICU 09:36 → 3SCARD 06-03 20:00
PROVIDERS: ADMIT Internal Medicine; ATTEND Internal Medicine
DX: I21.09 ST elevation (STEMI) myocardial infarction involving other coronary artery of anterior wall (principal); I50.21 Acute systolic (congestive) heart failure; Z68.43 Body mass index [BMI] 50.0-59.9, adult; D72.829 Elevated white blood cell count, unspecified; Z71.6 Tobacco abuse counseling; F17.210 Nicotine dependence, cigarettes, uncomplicated; E11.40 Type 2 diabetes mellitus with diabetic neuropathy, unspecified; E11.51 Type 2 diabetes mellitus with diabetic peripheral angiopathy without gangrene; E66.9 Obesity, unspecified; E78.00 Pure hypercholesterolemia, unspecified; F32.9 Major depressive disorder, single episode, unspecified; F41.9 Anxiety disorder, unspecified; G89.29 Other chronic pain; M54.9 Dorsalgia, unspecified; I11.0 Hypertensive heart disease with heart failure; I25.5 Ischemic cardiomyopathy; J44.9 Chronic obstructive pulmonary disease, unspecified; T38.0X5A Adverse effect of glucocorticoids and synthetic analogues, initial encounter; Z79.84 Long term (current) use of oral hypoglycemic drugs; Z79.899 Other long term (current) drug therapy; Z90.49 Acquired absence of other specified parts of digestive tract; Z79.82 Long term (current) use of aspirin; Z86.14 Personal history of Methicillin resistant Staphylococcus aureus infection; M10.9 Gout, unspecified; G47.30 Sleep apnea, unspecified
CPT/HCPCS: 36415; 71045; 80048; 80053; 80061; 81003; 83690; 83735; 83880; 84145; 84484; 85025; 85347; 85610; 85730; 93005; 93306; 93458; 94640; 96374; 96375; 99285

== ENCOUNTER 2020-06-15 22:13 | Emergency (ER) | payer OTHER ==
[2020-06-15] MEDS ORDERED: SODIUM CHLORIDE 0.9% 1,000 ML IV STA (22:33)
[2020-06-15] MEDS ORDERED: SODIUM CHLORIDE 0.9% 500 ML 500 ML IV STA (22:33)
--- NOTE | 2020-06-15 22:45 | ED ---
Dizziness HPI - General Chief Complaint: Dizziness Stated Complaint: light headed Time Seen by Provider: 06/15/20 22:29 Source: patient, EMS Mode of arrival: EMS Limitations: no limitations - Related Data Home Medications Medication Instructions Recorded Confirmed Glimepiride [Amaryl] 1 mg PO AC-BRKFST 05/18/19 06/16/20 Losartan Potassium [Cozaar] 100 mg PO DAILY 05/18/19 06/16/20 metFORMIN HCL [Glucophage] 1,000 mg PO BID-W/MEALS 05/18/19 06/16/20 traMADol HCl [Ultram] 50 - 100 mg PO TID PRN 05/18/19 06/16/20 Pregabalin [Lyrica] 150 mg PO TID 05/31/20 06/16/20 [place] (Unknown Strength) 1 tab PO ONCE PRN 06/02/20 06/02/20 Amoxic-Pot Clav 875-125Mg 1 tab PO Q12HR 06/16/20 06/16/20 [Augmentin 875-125] Fluticasone Nasal [place] [Flonase 1 spray EA NOSTRIL DAILY 06/16/20 06/16/20 Nasal [place]] Previous Rx's Medication Instructions Recorded Aspirin 81 mg PO DAILY #30 chew 06/05/20 Atorvastatin [Lipitor] 80 mg PO HS #30 tab 06/05/20 Famotidine [Pepcid] 20 mg PO Q12HR #60 tab 06/05/20 Furosemide [Lasix] 40 mg PO DAILY tab 06/05/20 Metoprolol Tartrate [Lopressor] 25 mg PO BID #60 tab 06/05/20 Nitroglycerin Sl Tabs [Nitrostat] 0.4 mg SUBLINGUAL Q5M PRN #20 tab 06/05/20 Spironolactone [Aldactone] 25 mg PO DAILY #30 tab 06/05/20 Ticagrelor [Brilinta] 90 mg PO BID #60 tab 06/05/20 predniSONE 10 mg PO DIRECTED #12 tab 06/05/20 Allergies Allergy/AdvReac Type Severity Reaction Status Date / Time No Known Allergies Allergy Verified 06/02/20 09:31 Review of Systems ROS Statement: Those systems with pertinent positive or pertinent negative responses have been documented in the HPI. ROS Other: All systems not noted in ROS Statement are negative. Past Medical History Past Medical History: Chest Pain / Angina, Heart Failure, COPD, Diabetes Mellitus, GERD/Reflux, Hypertension Additional Past Medical History / Comment(s): Cervical fracture, chronic back pain, gout., PVD, diabetic neuropathy., sleep apnea- never got machine., chronic cough for 5-6 yrs- coughing up blood., Hx of Lap cholecystectomy 05/08 11/23- incision healing has steri strip ., has cut on left foot by little toe that is taking a long time to heal (stepped on wood), [place] on 06/02/20 History of Any Multi-Drug Resistant Organisms: MRSA Date of last positivie culture/infection: 2005 MDRO Source:: "all over- systemic" Past Surgical History: Cholecystectomy, Heart Catheterization With Stent Past Anesthesia/Blood Transfusion Reactions: No Reported Reaction Past Psychological History: Anxiety, Depression Smoking Status: Current some day smoker Past Alcohol Use History: Occasional Past Drug Use History: None Reported - Past Family History Mother Family Medical History: No Reported History General Exam Limitations: no limitations Course Vital Signs 06/15/20 06/15/20 06/15/20 22:16 23:51 23:55 Temperature 97.0 F L Pulse Rate 80 73 Pulse Rate [ 70 [employer] ] Respiratory 18 16 Rate Blood Pressure 124/64 105/63 O2 Sat by Pulse 94 L 96 Oximetry 06/16/20 06/16/20 06/16/20 01:04 02:10 03:00 Temperature Pulse Rate 76 73 69 Pulse Rate [ [employer] ] Respiratory 16 18 19 Rate Blood Pressure 124/68 110/64 112/70 O2 Sat by Pulse 97 96 97 Oximetry EKG Findings - EKG Comments: EKG Findings:: EKG shows sinus rhythm rate of 77 OH 134 QRS 1O2 QTC 436 Medical Decision Making - Lab Data Result diagrams: 06/15/20 23:46 06/15/20 23:46 Lab Results 06/15/20 06/15/20 06/15/20 Range/Units 23:46 23:46 23:46 WBC 22.0 H (3.8-10.6) k/uL RBC 4.65 (4.30-5.90) m/uL Hgb 13.2 (13.0-17.5) gm/dL Hct 38.9 L (39.0-53.0) % MCV 83.8 (80.0-100.0) fL MCH 28.4 (25.0-35.0) pg MCHC 33.9 (31.0-37.0) g/dL RDW 15.2 (11.5-15.5) % Plt Count 308 (150-450) k/uL MPV 6.6 Neutrophils % 83 % Lymphocytes % 11 % Monocytes % 3 % Eosinophils % 2 % Basophils % 1 % Neutrophils # 18.3 H (1.3-7.7) k/uL Lymphocytes # 2.3 (1.0-4.8) k/uL Monocytes # 0.8 (0-1.0) k/uL Eosinophils # 0.3 (0-0.7) k/uL Basophils # 0.2 (0-0.2) k/uL PT 10.5 (9.0-12.0) sec INR 1.0 (<1.2) APTT 25.2 (22.0-30.0) sec D-Dimer 0.29 (<0.60) mg/L FEU Sodium 135 L (137-145) mmol/L Potassium 4.2 (3.5-5.1) mmol/L Chloride 96 L (98-107) mmol/L Carbon Dioxide 29 (22-30) mmol/L Anion Gap 10 mmol/L BUN 19 (9-20) mg/dL Creatinine 1.09 (0.66-1.25) mg/dL Est GFR (CKD-EPI)AfAm >90 (>60 ml/min/1.73 sqM) Est GFR (CKD-EPI)NonAf 84 (>60 ml/min/1.73 sqM) Glucose 156 H (74-99) mg/dL Calcium 8.7 (8.4-10.2) mg/dL Magnesium 1.6 (1.6-2.3) mg/dL Total Bilirubin 0.7 (0.2-1.3) mg/dL AST 49 (17-59) U/L ALT 44 (4-49) U/L Alkaline Phosphatase 126 (38-126) U/L Troponin I (0.000-0.034) ng/mL NT-Pro-B Natriuret Pep pg/mL Total Protein 7.3 (6.3-8.2) g/dL Albumin 4.0 (3.5-5.0) g/dL Lipase 142 (23-300) U/L 06/15/20 06/15/20 06/16/20 Range/Units 23:46 23:46 03:15 WBC (3.8-10.6) k/uL RBC (4.30-5.90) m/uL Hgb (13.0-17.5) gm/dL Hct (39.0-53.0) % MCV (80.0-100.0) fL MCH (25.0-35.0) pg MCHC (31.0-37.0) g/dL RDW (11.5-15.5) % Plt Count (150-450) k/uL MPV Neutrophils % % Lymphocytes % % Monocytes % % Eosinophils % % Basophils % % Neutrophils # (1.3-7.7) k/uL Lymphocytes # (1.0-4.8) k/uL Monocytes # (0-1.0) k/uL Eosinophils # (0-0.7) k/uL Basophils # (0-0.2) k/uL PT (9.0-12.0) sec INR (<1.2) APTT (22.0-30.0) sec D-Dimer (<0.60) mg/L FEU Sodium (137-145) mmol/L Potassium (3.5-5.1) mmol/L Chloride (98-107) mmol/L Carbon Dioxide (22-30) mmol/L Anion Gap mmol/L BUN (9-20) mg/dL Creatinine (0.66-1.25) mg/dL Est GFR (CKD-EPI)AfAm (>60 ml/min/1.73 sqM) Est GFR (CKD-EPI)NonAf (>60 ml/min/1.73 sqM) Glucose (74-99) mg/dL Calcium (8.4-10.2) mg/dL Magnesium (1.6-2.3) mg/dL Total Bilirubin (0.2-1.3) mg/dL AST (17-59) U/L ALT (4-49) U/L Alkaline Phosphatase (38-126) U/L Troponin I 0.168 H* 0.155 H* (0.000-0.034) ng/mL NT-Pro-B Natriuret Pep 269 pg/mL Total Protein (6.3-8.2) g/dL Albumin (3.5-5.0) g/dL Lipase (23-300) U/L Disposition Clinical Impression: Chest pain, Angina at rest Disposition: HOME SELF-CARE Condition: Undetermined Instructions (If sedation given, give patient instructions): Chest Pain (ED) Is patient prescribed a controlled substance at d/c from ED?: No Referrals: José Antonio Veronica MD [Primary Care Provider] - 1-2 days
[2020-06-15 23:55] LABS: Basophils # (A) 0.2 k/uL (0-0.2); Basophils % (A) 1 %; Eosinophils # (A) 0.3 k/uL (0-0.7); Eosinophils % (A) 2 %; HCT 38.9 % (39.0-53.0); HGB 13.2 gm/dL (13.0-17.5); Lymphocytes # (A) 2.3 k/uL (1.0-4.8); Lymphocytes % (A) 11 %; MCH 28.4 pg (25.0-35.0); MCHC 33.9 g/dL (31.0-37.0); MCV 83.8 fL (80.0-100.0); Mean Platelet Volume 6.6; Monocytes # (A) 0.8 k/uL (0-1.0); Monocytes % (A) 3 %; Neutrophils # (A) 18.3 k/uL (1.3-7.7); Neutrophils % (A) 83 %; Platelet Count 308 k/uL (150-450); RBC 4.65 m/uL (4.30-5.90); RDW 15.2 % (11.5-15.5)
[2020-06-16 00:11] LABS: ALT 44 U/L (4-49); African American GFR (CKD) >90 (>60 ml/min/1.73 sqM); Anion Gap 10 mmol/L; Blood Urea Nitrogen 19 mg/dL (9-20); Calcium 8.7 mg/dL (8.4-10.2); Carbon Dioxide 29 mmol/L (22-30); Chloride 96 mmol/L (98-107); D-Dimer 0.29 mg/L FEU (<0.60); Glucose 156 mg/dL (74-99); Lipase 142 U/L (23-300); Non-African American GFR(CKD) 84 (>60 ml/min/1.73 sqM); Partial Thromboplastin Time 25.2 sec (22.0-30.0); Prothrombin Time 10.5 sec (9.0-12.0); Sodium 135 mmol/L (137-145); Total Bilirubin 0.7 mg/dL (0.2-1.3); Total Protein 7.3 g/dL (6.3-8.2)
[2020-06-16 00:25] LABS: Potassium 4.2 mmol/L (3.5-5.1)
[2020-06-16 00:26] LABS: AST 49 U/L (17-59); Alkaline Phosphatase 126 U/L (38-126); Magnesium 1.6 mg/dL (1.6-2.3)
--- NOTE | 2020-06-16 01:01 | CT ---
EXAM: CT Angiography Chest With Intravenous Contrast CLINICAL HISTORY: ITS.REASON CT Reason: PE TECHNIQUE: Axial computed tomographic angiography images of the chest with intravenous contrast. CTDI is 41.35 mGy and DLP is 1068 mGy-cm. This CT exam was performed using one or more of the following dose reduction techniques: automated exposure control, adjustment of the mA and/or kV according to patient size, and/or use of iterative reconstruction technique. MIP reconstructed images were created and reviewed. COMPARISON: none available FINDINGS: Pulmonary arteries: Unremarkable. No pulmonary embolism. Aorta: No acute findings. No thoracic aortic aneurysm. Lungs: Unremarkable. No mass. No consolidation. Pleural space: Unremarkable. No significant effusion. No pneumothorax. Heart: No cardiomegaly. No significant pericardial effusion. No evidence of RV dysfunction. LAD stent in place. Bones/joints: No acute fracture. No dislocation. Soft tissues: Unremarkable. Lymph nodes: Unremarkable. No enlarged lymph nodes. IMPRESSION: 1. No acute pulmonary embolism. 2. No acute intrathoracic process.
[2020-06-16 04:23] VITALS: BP 113/67; PULSE 74; RESP 20; TEMP 97.8
== END 2020-06-16 04:10 | disposition home or self-care (01) ==
LOC: EC 22:13
DX: I20.8 Other forms of angina pectoris (principal); E11.40 Type 2 diabetes mellitus with diabetic neuropathy, unspecified; E11.51 Type 2 diabetes mellitus with diabetic peripheral angiopathy without gangrene; I11.0 Hypertensive heart disease with heart failure; I50.9 Heart failure, unspecified; J44.9 Chronic obstructive pulmonary disease, unspecified; K21.9 Gastro-esophageal reflux disease without esophagitis; G47.30 Sleep apnea, unspecified; F17.200 Nicotine dependence, unspecified, uncomplicated; Z79.84 Long term (current) use of oral hypoglycemic drugs; Z79.899 Other long term (current) drug therapy; Z95.5 Presence of coronary angioplasty implant and graft
CPT/HCPCS: 36415; 71275; 80053; 83690; 83735; 83880; 84484; 85025; 85379; 85610; 85730; 93005; 96360; 96361; 99284

== ENCOUNTER → 2020-08-29 | Outpatient (CLI) | payer OTHER ==
[2020-08-29 19:13] LABS: Chol/HDL Ratio 4.3; LDL Cholesterol,Calculated 60.2 mg/dL (0.0-131.0); VLDL Calculation 28.8 mg/dL (5.00-40.00)
== END | disposition home or self-care (01) ==
LOC: LABWHC1 12:33
PROVIDERS: ATTEND Internal Medicine Cardiovascular Disease
DX: E78.2 Mixed hyperlipidemia (principal)
CPT/HCPCS: 36415; 80061; 84450; 84460

== ENCOUNTER 2021-02-21 00:41 | Emergency (ER) | payer OTHER ==
[2021-02-21] MEDS ORDERED: BACITRACIN OINT 1 EACH PACKET TOPICAL ONE (01:14)
[2021-02-21] MEDS ORDERED: MORPHINE SULFATE 4 MG/ML SYRINGE IV STA (01:14)
[2021-02-21] MEDS ORDERED: DIPH,PERTUS(ACELL)TETVAC-LF 0.5 ML VIAL IM ONE (01:14)
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
[2021-02-21 02:02] VITALS: BP 111/75; PULSE 78; RESP 24; TEMP 97.8
== END 2021-02-21 01:55 | disposition home or self-care (01) ==
LOC: EC 00:41 → SUPCPDRO 00:41 → EC 01:55
DX: T21.12XA Burn of first degree of abdominal wall, initial encounter (principal); T22.112A Burn of first degree of left forearm, initial encounter; T20.10XA Burn of first degree of head, face, and neck, unspecified site, initial encounter; T24.131A Burn of first degree of right lower leg, initial encounter; T24.132A Burn of first degree of left lower leg, initial encounter; T31.10 Burns involving 10-19% of body surface with 0% to 9% third degree burns; Z23 Encounter for immunization; I11.0 Hypertensive heart disease with heart failure; J44.9 Chronic obstructive pulmonary disease, unspecified; K21.9 Gastro-esophageal reflux disease without esophagitis; E11.40 Type 2 diabetes mellitus with diabetic neuropathy, unspecified; F32.9 Major depressive disorder, single episode, unspecified; F41.9 Anxiety disorder, unspecified; F17.200 Nicotine dependence, unspecified, uncomplicated; Z79.82 Long term (current) use of aspirin; Z79.84 Long term (current) use of oral hypoglycemic drugs; X04.XXXA Exposure to ignition of highly flammable material, initial encounter
CPT/HCPCS: 90471; 90715; 96374; 99285

== ENCOUNTER → 2022-03-02 | Outpatient (CLI) | payer OTHER ==
[2022-03-02 14:23] LABS: HCT 41.4 % (39.6-50.0); MCH 26.2 pg (27.0-32.0); MCHC 31.4 g/dL (32.0-37.0); MCV 83.3 fL (80.0-97.0); Mean Platelet Volume 9.3 fL (9.5-12.2); NRBC Per 100 WBC 0 /100 WBCS (0.0-0.0); Platelet Count 274 X 10*3/uL (140-440); RBC 4.97 X 10*6/uL (4.40-5.60); RDW 16.3 % (11.5-14.5); WBC 14.97 X 10*3/uL (4.50-10.00)
[2022-03-02 14:36] LABS: African American GFR (CKD) 120.8 (60.0-200.0); Anion Gap 11.7 mmol/L (10.00-18.00); BUN/Creat Ratio 16.44 Ratio (12.00-20.00); Blood Urea Nitrogen 14.8 mg/dL (9.0-27.0); Calcium 9.6 mg/dL (8.7-10.3); Carbon Dioxide 29.3 mmol/L (20.0-27.5); Non-African American GFR(CKD) 104.2 (60.0-200.0); Potassium 3.7 mmol/L (3.5-5.5)
== END | disposition home or self-care (01) ==
LOC: LABWHC1 10:49
PROVIDERS: ATTEND Internal Medicine Cardiovascular Disease
DX: Z00.00 Encounter for general adult medical examination without abnormal findings (principal)
CPT/HCPCS: 36415; 80048; 85027

== ENCOUNTER → 2022-03-07 | Day surgery (SDC) | payer OTHER ==
[2022-03-06 14:19] VITALS: BMI 57.4
[~2022-03-07] MED LIST changes: -ALBUTEROL NEB (CONC) 2.5 MG/0.5 ML INHALATION ONE; +ALPRAZolam 0.25 MG TAB PO PRN; +ALPRAZolam 0.5 MG TAB PO PRN; +ASPIRIN 325 MG TAB PO ONE; +ATORVASTATIN 80 MG TAB PO ONE; -LACTATED RINGERS 1,000 ML IV SCH; -LIDOCAINE 1% 20 ML VIAL (10MG/ML) FOR IV START INTRADERMA PRN; -LIDOCAINE 2% (PF) 20 MG/ML 5 ML VIAL INHALATION ONE; -LIDOCAINE VISCOUS 300 MG/15 ML CUP MUCOUS MEM ONE; +NITROGLYCERIN SL TABS 0.4 MG TAB SUBLINGUAL PRN; -SODIUM CHLORIDE 0.9% 1,000 ML IV SCH; +SODIUM CHLORIDE 0.9% 1,000 ML in EMPTY BAG 1 BAG IV SCH
== END ==
LOC: CATHCVL 10:36
PROVIDERS: ATTEND Internal Medicine Cardiovascular Disease
DX: R07.2 Precordial pain (principal); Z53.9 Procedure and treatment not carried out, unspecified reason; I10 Essential (primary) hypertension; E78.5 Hyperlipidemia, unspecified; E11.51 Type 2 diabetes mellitus with diabetic peripheral angiopathy without gangrene; Z82.49 Family history of ischemic heart disease and other diseases of the circulatory system; Z72.0 Tobacco use; J44.9 Chronic obstructive pulmonary disease, unspecified; I25.5 Ischemic cardiomyopathy; I25.10 Atherosclerotic heart disease of native coronary artery without angina pectoris

== ENCOUNTER 2022-03-26 09:10 | Day surgery (SDC) | payer OTHER ==
[2022-03-23 09:33] VITALS: BMI 57.4
[~2022-03-26 09:10] MED LIST changes: -ASPIRIN 325 MG TAB PO ONE; +ASPIRIN 325 MG TAB PO STA; -ATORVASTATIN 80 MG TAB PO ONE; +ATORVASTATIN 80 MG TAB PO STA; +HEPARIN SODIUM,PORCINE 10,000 UNIT in SODIUM CHLORIDE 0.9% 1,000 ML IRRIGATION PRN; +HEPARIN SODIUM,PORCINE 2,500 UNIT in SODIUM CHLORIDE 0.9% 250 ML IRRIGATION PRN
[2022-03-26 09:48] LABS: Glucose,Whole Blood 242 mg/dL (70-110)
[2022-03-26 09:55] LABS: Anisocytosis Slight; Basophils # (A) 0.1 k/uL (0-0.2); Basophils % (A) 1 %; Eosinophils # (A) 0.4 k/uL (0-0.7); Eosinophils % (A) 3 %; HCT 38.5 % (39.0-53.0); HGB 12.3 gm/dL (13.0-17.5); Hypochromasia Slight; Lymphocytes % (A) 27 %; MCH 26.6 pg (25.0-35.0); MCHC 31.9 g/dL (31.0-37.0); MCV 83.2 fL (80.0-100.0); Mean Platelet Volume 7.5; Monocytes # (A) 0.7 k/uL (0-1.0); Monocytes % (A) 5 %; Neutrophils # (A) 9.5 k/uL (1.3-7.7); Neutrophils % (A) 64 %; Platelet Count 288 k/uL (150-450); RBC 4.63 m/uL (4.30-5.90); RDW 16.3 % (11.5-15.5)
[2022-03-26] MEDS ORDERED: INSULIN ASPART (NovoLOG) 100 UNIT/ML VIAL SQ ONE (09:56)
[2022-03-26] MEDS ORDERED: fentaNYL (PF) 50 MCG/ML 2 ML AMP ONE (10:20)
[2022-03-26] MEDS ORDERED: HEPARIN SODIUM 1,000 UN/ML (10ML VL) ONE (10:20)
[2022-03-26] MEDS ORDERED: VERAPAMIL 2.5 MG/ML 2 ML AMP ONE (10:21)
[2022-03-26] MEDS: MIDAZOLAM 2 MG/2 ML VIAL IV ONE ×2 (10:35→11:21)
[2022-03-26] MEDS ORDERED: fentaNYL (PF) 50 MCG/ML 2 ML AMP IV ONE (10:35)
[2022-03-26] MEDS ORDERED: LIDOCAINE 1% INJ 10MG/ML (30 ML VIAL-PF) SQ ONE (10:36)
[2022-03-26] MEDS ORDERED: VERAPAMIL SYRINGE (5 MG/10 ML) INTRAARTER ONE (10:38)
[2022-03-26] MEDS: HEPARIN SODIUM 1,000 UN/ML (10ML VL) IV ONE ×4 (10:42→11:22)
[2022-03-26] MEDS ORDERED: IOPAMIDOL-370 125ML BTL INJ ONE (11:14)
[2022-03-26] MEDS ORDERED: NITROGLYCERIN 1000MCG/10ML SYRINGE INTRACORON ONE (11:19)
[2022-03-26] MEDS ORDERED: IOPAMIDOL-370 100ML BTL INJ ONE (11:32)
[2022-03-26] MEDS ORDERED: MAG HYDROX/AL HYDROX/SIMETH 30 ML CUP PO PRN (11:40)
[2022-03-26] MEDS ORDERED: RX INFO: IV CONTRAST WAS GIVEN 1 EACH MISC MISCELLANE PRN (11:40)
[2022-03-26] MEDS ORDERED: ATROPINE SULFATE 0.1 MG/ML 10ML SYRINGE IV PRN (11:40)
[2022-03-26] MEDS ORDERED: ZOLPIDEM 5 MG TAB PO PRN (11:40)
[2022-03-26] MEDS ORDERED: NITROGLYCERIN SL TABS 0.4 MG TAB SUBLINGUAL PRN (11:40)
[2022-03-26] MEDS ORDERED: SODIUM CHLORIDE 0.9% 1,000 ML in EMPTY BAG 1 BAG IV SCH (11:45)
--- NOTE | 2022-03-26 11:47 | P.CARDCATH ---
Date of Procedure: 03/26/22 Description of Procedure: PERCUTANEOUS TRANSLUMINAL CORONARY ANGIOPLASTY CLINICAL INFORMATION: The patient is a 41-year-old male with a known history of hypertension, hyperlipidemia, diabetes mellitus and a prior stenting of the LAD in May 2020 in the setting of an acute myocardial infarction who presented with symptoms of chest discomfort. He underwent cardiac catheterization by Dr Yanez and was found to have significant obstructive disease involving the mid RCA . Recommendations were made regarding angioplasty and stenting. The procedure as well as the risks and the complications were discussed with the patient who was in full understanding and agreement. PROCEDURE: A 6 [place] 0.75 AL guiding catheter was introduced into the system. After cannulating the right coronary ostium, a 0.014 BMW J-wire was advanced across the lesion and positioned distally. Following that a 3.0 x 12 NC Treck balloon was advanced and inflated at 10 atmosphere. Following that a 3.5 x 23 mm Xience luis e point stent was deployed. It was dilated at 16. After the last inflation, after appropriate wait, the balloon and the guidewire were withdrawn back into the guiding catheter. Images were obtained and repeated. Those images reveal stable successful stenting. At that point, the guiding catheter, the balloon, and guidewire were removed. The sheath was removed. Hemostasis was obtained with deployment for TR band. There were no immediate complications. The patient was returned to the room in stable condition. Of note, the patient received additional 4000 units of heparin and continued on Brilinta. His ACT was followed. There was no immediate complications. The patient had no significant EKG changes or symptoms with the inflation. RESULTS: Successful stenting of the mid RCA with reduction of stenosis from 90 % to 0 %. RECOMMENDATIONS: Have recommended to continue dual antiplatelet treatment with aspirin and Brilinta for 6 months in addition to aggressive coronary risks modifications. The findings and recommendations were discussed with the patient and the family, they are in full understanding and agreement. Duration of sedation: 18 minutes
--- NOTE | 2022-03-26 13:28 | CC ---
CARDIAC CATHETERIZATION REPORT INDICATIONS: Unstable angina in a patient with known CAD, status post prior angioplasty of LAD. PROCEDURE NOTE: After obtaining informed consent, left heart catheterization and coronary angiogram were performed via the right radial artery using standard Katrin catheters. The patient tolerated the procedure well without any obvious immediate complications. The patient received 5 mg of verapamil and 6000 units of heparin per protocol. Right radial artery access was obtained using a micropuncture needle and a 6-[place]iquais sheath was placed in the right radial artery and selective images of the left coronary artery was obtained using a size 3-1/2 Katrin catheter. Subselective images of the right coronary artery were obtained using size 4 right Katrin catheter. Hemodynamics were obtained with the right Katrin. FINDINGS: 1. Hemodynamics: Left ventricular end-diastolic pressure is 26 mm, there is no significant gradient across the aortic valve. 2. Left ventriculogram: Left ventriculogram is not performed. 3. Angiographic data: a.Left main coronary artery: Left main coronary artery is a normal-sized vessel and is free of stenosis. Divides into left anterior descending coronary artery and circumflex coronary artery. LAD was previously stented in its midportion, appears patent, circumflex coronary artery gives off a large-caliber OM branch and it is subtotally occluded distally. Right coronary artery is a large dominant vessel that shows a 90% focal stenosis in the mid to distal portion. CONCLUSION: Patent stent within the LAD, 90% stenosis involving right coronary artery, chronic subtotal occlusion of the [place] circ. PLAN: Patient will undergo angioplasty with stent placement of the right coronary artery. MMODL / IJN: [id number] /
[2022-03-26] MEDS ORDERED: PREGABALIN 75 MG CAP PO SCH (16:00)
[2022-03-26] MEDS ORDERED: tiZANidine 4 MG TAB PO SCH (16:00)
[2022-03-26 19:09] VITALS: TEMP 97.3
[2022-03-26 19:29] VITALS: BP 127/65; PULSE 68; RESP 18
[2022-03-26] MEDS ORDERED: FAMOTIDINE 20 MG TAB PO SCH (21:00)
[2022-03-26] MEDS ORDERED: TICAGRELOR 90 MG TAB PO SCH ×2 (21:00)
[2022-03-26] MEDS ORDERED: METOPROLOL TARTRATE 25 MG TAB PO SCH (21:00)
[2022-03-26] MEDS ORDERED: ATORVASTATIN 80 MG TAB PO SCH (21:00)
[2022-03-27] MEDS ORDERED: SPIRONOLACTONE 25 MG TAB PO SCH (09:00)
[2022-03-27] MEDS ORDERED: ISOSORBIDE MONONITRATE ER 30 MG TAB.ER.24H PO SCH (09:00)
[2022-03-27] MEDS ORDERED: LOSARTAN 50 MG TAB PO SCH (09:00)
[2022-03-27] MEDS ORDERED: GLIMEPIRIDE 1 MG TAB PO SCH (09:00)
[2022-03-27] MEDS ORDERED: ASPIRIN 81 MG PO SCH (09:00)
== END 2022-03-26 16:47 | disposition home or self-care (01) ==
LOC: CATHCVL 09:10
PROVIDERS: ATTEND Internal Medicine Cardiovascular Disease
DX: T82.855A Stenosis of coronary artery stent, initial encounter (principal); I25.110 Atherosclerotic heart disease of native coronary artery with unstable angina pectoris; I10 Essential (primary) hypertension; Z98.61 Coronary angioplasty status; I25.2 Old myocardial infarction; E66.01 Morbid (severe) obesity due to excess calories; Z68.43 Body mass index [BMI] 50.0-59.9, adult; E78.5 Hyperlipidemia, unspecified; F17.210 Nicotine dependence, cigarettes, uncomplicated; R60.0 Localized edema; E11.51 Type 2 diabetes mellitus with diabetic peripheral angiopathy without gangrene; J44.9 Chronic obstructive pulmonary disease, unspecified; Z82.49 Family history of ischemic heart disease and other diseases of the circulatory system; I25.5 Ischemic cardiomyopathy; Z79.84 Long term (current) use of oral hypoglycemic drugs; Z79.02 Long term (current) use of antithrombotics/antiplatelets; Z79.82 Long term (current) use of aspirin; Z79.899 Other long term (current) drug therapy
CPT/HCPCS: 93458; 85025; C9600; C1769 ×2; C1887; C1894; C1725; C1874; J2250; J2001; J3010; J1644; Q9967 ×2

== ENCOUNTER 2023-03-12 14:51 | Observation (INO) | payer OTHER ==
[2023-03-12 14:59] VITALS: TEMP 97.8
--- NOTE | 2023-03-12 16:01 | XR ---
EXAMINATION TYPE: XR chest 2V DATE OF EXAM: 03/12/2023 3:58 PM CLINICAL INDICATION:Male, 42 years old with history of upper resp symptoms; COMPARISON: Chest radiographs from 06/03/2020 TECHNIQUE: XR chest 2V Frontal and lateral views of the chest. FINDINGS: Lungs/Pleura: There is no evidence of pleural effusion, focal consolidation, or pneumothorax. Pulmonary vascularity: Unremarkable. Heart/mediastinum: Cardiomediastinal silhouette is unremarkable. Musculoskeletal: No acute osseous pathology. IMPRESSION: No acute cardiopulmonary disease/process.
[2023-03-12 16:16] VITALS: RESP 20
[2023-03-12 16:29] LABS: Anisocytosis Slight; Basophils % (A) 0 %; Eosinophils # (A) 0.4 k/uL (0-0.7); Eosinophils % (A) 3 %; HCT 38.2 % (39.0-53.0); HGB 12.6 gm/dL (13.0-17.5); Lymphocytes # (A) 2.6 k/uL (1.0-4.8); Lymphocytes % (A) 23 %; MCH 26.8 pg (25.0-35.0); MCHC 33.1 g/dL (31.0-37.0); MCV 81.1 fL (80.0-100.0); Mean Platelet Volume 7.1; Monocytes # (A) 0.5 k/uL (0-1.0); Monocytes % (A) 4 %; Neutrophils % (A) 69 %; Platelet Count 245 k/uL (150-450); RBC 4.71 m/uL (4.30-5.90); WBC 11.7 k/uL (3.8-10.6)
[2023-03-12 16:38] LABS: ALT 41 U/L (4-49); AST 35 U/L (17-59); African American GFR (CKD) >90 (>60 ml/min/1.73 sqM); Albumin 3.9 g/dL (3.5-5.0); Alkaline Phosphatase 138 U/L (38-126); Anion Gap 7 mmol/L; Blood Urea Nitrogen 15 mg/dL (9-20); Calcium 9.1 mg/dL (8.4-10.2); Carbon Dioxide 27 mmol/L (22-30); Chloride 101 mmol/L (98-107); Glucose 271 mg/dL (74-99); Lipase 279 U/L (23-300); Non-African American GFR(CKD) >90 (>60 ml/min/1.73 sqM); Potassium 4.3 mmol/L (3.5-5.1); Sodium 135 mmol/L (137-145); Total Bilirubin 0.4 mg/dL (0.2-1.3); Total Protein 7.3 g/dL (6.3-8.2)
[2023-03-12 16:45] LABS: INR 0.9 (<1.2); Prothrombin Time 9.8 sec (9.0-12.0)
[2023-03-12 16:47] LABS: NT-Pro-B-Type Natriuretic Pept 501 pg/mL
[2023-03-12] MEDS ORDERED: NALOXONE 0.4 MG/ML 1 ML VIAL IV PRN (17:12)
--- NOTE | 2023-03-12 17:12 | ED ---
General Adult HPI - General Chief complaint: Chest Pain Stated complaint: R side chest pain Time Seen by Provider: 03/12/23 15:15 Source: patient Mode of arrival: ambulatory Limitations: no limitations - History of Present Illness Initial comments: This is a 42-year-old male with an extensive past medical history including hypertension, hyperlipidemia, diabetes and congestive heart failure presented to the emergency department for increasing exertional shortness of breath after being sent into the emergency department by his humidifier operator. The patient stated that he experienced a fall onto the right side of his ribs last week and stated that he had increasing exertional shortness of breath since this time. The patient stated that his diet is poor and states he does have increasing fluid retention in his legs. The patient also reported that he is unable to lay flat at night and has positive orthopnea signs. The patient was otherwise r esting in bed comfortably. The patient denied any lightheadedness or dizziness. - Related Data Home Medications Medication Instructions Recorded Confirmed Glimepiride [Amaryl] 1 mg PO DAILY 05/18/19 08/29/22 traMADol HCl [Ultram] 50 mg PO TID PRN 05/18/19 08/29/22 Pregabalin [Lyrica] 150 mg PO TID 05/31/20 08/29/22 Famotidine [Pepcid] 20 mg PO HS 03/06/22 08/29/22 sitaGLIPtin PHOS/metFORMIN HCL 1 tab PO BID 03/23/22 08/29/22 [Janumet 50-1,000 mg Tablet] tiZANidine HCL 4 mg PO TID PRN 03/23/22 08/29/22 Ergocalciferol (Vitamin D2) 1,250 mcg PO Q7D 08/29/22 08/29/22 [Drisdol (50,000 Iu)] Furosemide [Lasix] 40 mg PO BID 08/29/22 08/29/22 Isosorbide Mononitrate ER [Imdur] 60 mg PO DAILY 08/29/22 08/29/22 Liraglutide [Victoza 2-Thad] 1.8 mg SQ DAILY 08/29/22 08/29/22 Losartan Potassium 50 mg PO DAILY 08/29/22 08/29/22 Spironolactone [Aldactone] 50 mg PO DAILY 08/29/22 08/29/22 Previous Rx's Medication Instructions Recorded Aspirin 81 mg PO DAILY #30 chew 06/05/20 Atorvastatin [Lipitor] 80 mg PO HS #30 tab 06/05/20 Metoprolol Tartrate [Lopressor] 25 mg PO BID #60 tab 06/05/20 Nitroglycerin Sl Tabs [Nitrostat] 0.4 mg SUBLINGUAL Q5M PRN #20 tab 06/05/20 Ticagrelor [Brilinta] 90 mg PO BID #60 tab 06/05/20 Cephalexin [Keflex] 500 mg PO Q6HR #40 cap 08/29/22 Ibuprofen [Motrin] 800 mg PO Q8HR PRN #30 tab 08/29/22 Allergies Allergy/AdvReac Type Severity Reaction Status Date / Time No Known Allergies Allergy Verified 03/12/23 14:59 Review of Systems ROS Statement: Those systems with pertinent positive or pertinent negative responses have been documented in the HPI. ROS Other: All systems not noted in ROS Statement are negative. Past Medical History Past Medical History: Chest Pain / Angina, Heart Failure, COPD, Diabetes Mellitus, GERD/Reflux, Hypertension, Myocardial Infarction ([place]), Sleep Apnea/CPAP/BIPAP, Vascular Disorder Additional Past Medical History / Comment(s): increased SOB,Cervical fracture, chronic back pain, gout., PVD, diabetic neuropathy., sleep apnea- never got machine., chronic cough for 5-6 yrs- coughing up blood., [place] on 06/02/20,2nd [place] 2020 or 2021(not sure exact jolene),Covid infection October 2020-spouse stated "was sick with Covid for approx a month" Last Myocardial Infarction Date:: 05/2020,2020 or 2021 History of Any Multi-Drug Resistant Organisms: MRSA Date of last positivie culture/infection: 2005 MDRO Source:: "all over- systemic" Past Surgical History: Cholecystectomy, Heart Catheterization With Stent Additional Past Surgical History / Comment(s): cardiac stent x1 Past Anesthesia/Blood Transfusion Reactions: No Reported Reaction Date of Last Stent Placement:: 05/2020 Past Psychological History: Anxiety, Depression, Panic Disorder Smoking Status: Current every day smoker Past Alcohol Use History: None Reported Past Drug Use History: None Reported - Past Family History Mother Family Medical History: No Reported History Father Family Medical History: Deep Vein Thrombosis (DVT) General Exam Limitations: no limitations General appearance: alert, in no apparent distress, obese Head exam: Present: atraumatic, normocephalic, normal inspection Eye exam: Present: normal appearance, PERRL Pupils: Present: normal accommodation ENT exam: Present: normal exam, normal oropharynx, mucous membranes moist Neck exam: Present: normal inspection, full ROM Respiratory exam: Present: normal lung sounds bilaterally Cardiovascular Exam: Present: regular rate, normal rhythm, normal heart sounds GI/Abdominal exam: Present: soft, normal bowel sounds Extremities exam: Present: normal inspection, full ROM, pedal edema Back exam: Present: normal inspection, full ROM Neurological exam: Present: alert, oriented X3, CN II-XII intact Psychiatric exam: Present: normal affect, normal mood Skin exam: Present: warm, dry Course Vital Signs 03/12/23 03/12/23 14:53 16:15 Temperature 97.8 F Pulse Rate 89 80 Respiratory 17 20 Rate Blood Pressure 147/81 128/85 O2 Sat by Pulse 97 93 L Oximetry EKG Findings - EKG Comments: EKG Findings:: An EKG was obtained and was interpreted by myself showing a rate of 83, SD interval 145, QRS duration of 108 and QTC of 425. This EKG showed a normal sinus rhythm with no ST segment elevation or depression noted. Procedures - [place] Protocol (Time Out) Nurse: Lindsey Jaramillo Medical Decision Making - Medical Decision Making Was pt. sent in by a medical professional or institution ([facility] Ashley, ENGINEERING GROUP MANAGER, urgent care, hospital, or [place] health care facility...) When possible be specific @ -Yes, sent in by Dr. Yanez's office Did you speak to anyone other than the patient for history (EMS, parent, family, police, friend...)? What history was obtained from this source @ -Yes, patient's who did state that the patient has been increasingly short of breath with exertion Did you review nursing and triage notes (agree or disagree)? Why? @ -I reviewed and agree with nursing and triage notes Were old charts reviewed (outside hosp., previous admission, EMS record, old EKG , old radiological studies, urgent care reports/EKG's, [place] health care facility records)? Report findings @ -No old charts were reviewed Differential Diagnosis (chest pain, altered mental status, abdominal pain women, abdominal pain men, vaginal bleeding, weakness, fever, dyspnea, syncope, headache, dizziness, GI bleed, back pain, seizure, CVA, palpatations, mental health)? @ -Congestive heart failure exacerbation, pneumothorax, pneumonia, ACS EKG interpreted by me (3pts min.). @ -As above X-rays interpreted by me (1pt min.). @ -Chest x-ray was obtained and was interpreted by myself showing no acute process. CT interpreted by me (1pt min.). @ -None done U/S interpreted by me (1pt. min.). @ -None done What testing was considered but not performed or refused? (CT, X-rays, U/S, labs)? Why? @ -None What meds were considered but not given or refused? Why? @ -None Did you discuss the management of the patient with other professionals (professionals i.e. , PA, ENGINEERING GROUP MANAGER, lab, RT, psych nurse, social insurance adviser, franchise business consultant, teacher, chairman president and chief executive officer, director case management)? Give summary @ -Yes, the patient's primary care physician was being covered by Dr. Edmond he was contacted regarding placing the patient in observation. Was smoking cessation discussed for >3mins.? @ -No Was critical care preformed (if so, how long)? @ -No Were there social determinants of health that impacted care today? How? (H omelessness, low income, unemployed, alcoholism, drug addiction, transportation, low edu. Level, literacy, decrease access to med. care, retirement, rehab)? @ -No Was there de-escalation of care discussed even if they declined (Discuss DNR or withdrawal of care, Hospice)? DNR status @ -No What co-morbidities impacted this encounter? (DM, HTN, Smoking, COPD, CAD, Cancer, CVA, ARF, Chemo, Hep., AIDS, mental health diagnosis, sleep apnea, morbid obesity)? @ -Diabetes, hypertension, hyperlipidemia, congestive heart failure, morbid obesity Was patient admitted / discharged? Hospital course, mention meds given and route, prescriptions, significant lab abnormalities, going to OR and other p ertinent info. @ -The patient was seen and evaluated in emergency department. On physical exam, the patient was resting in bed without any acute distress. Vital signs admission were stable. Due to the nature the patient's pain, laboratory workup was obtained and did have findings including an elevated troponin 0.195 however the patient doesn't a history of elevated troponin and therefore will not be heparinized at this time. The patient's proBNP was mildly elevated at 500. Due to the nature the patient's continued chest pain and increasing exertional shortness of breath, the patient will be placed in observation to be evaluated by cardiology. It was also reported by the patient and his that he was due for a repeat echocardiogram and did agree to this plan. The patient was placed in observation in stable condition. Undiagnosed new problem with uncertain prognosis? @ -No Drug Therapy requiring intensive monitoring for toxicity (Heparin, Nitro, Insulin, Cardizem)? @ -No Were any procedures done? @ -No Diagnosis/symptom? @ -Chest pain, exertional dyspnea Acute, or Chronic, or Acute on Chronic? @ -Acute on chronic Uncomplicated (without systemic symptoms) or Complicated (systemic symptoms)? @ -Complicated Side effects of treatment? @ -No Exacerbation, Progression, or Severe Exacerbation? @ -No Poses a threat to life or bodily function? How? (Chest pain, [place], [place], pneumonia, PE, COPD, DKA, ARF, appy, cholecystitis, CVA, Diverticulitis, Homicidal, Suicidal, threat to staff... and all critical care pts) @ -No - Lab Data Result diagrams: 03/12/23 16:15 03/12/23 16:15 Lab Results 03/12/23 03/12/23 03/12/23 Range/Units 16:15 16:15 16:15 WBC 11.7 H (3.8-10.6) k/uL RBC 4.71 (4.30-5.90) m/uL Hgb 12.6 L (13.0-17.5) gm/dL Hct 38.2 L (39.0-53.0) % MCV 81.1 (80.0-100.0) fL MCH 26.8 (25.0-35.0) pg MCHC 33.1 (31.0-37.0) g/dL RDW 16.0 H (11.5-15.5) % Plt Count 245 (150-450) k/uL MPV 7.1 Neutrophils % 69 % Lymphocytes % 23 % Monocytes % 4 % Eosinophils % 3 % Basophils % 0 % Neutrophils # 8.0 H (1.3-7.7) k/uL Lymphocytes # 2.6 (1.0-4.8) k/uL Monocytes # 0.5 (0-1.0) k/uL Eosinophils # 0.4 (0-0.7) k/uL Basophils # 0.0 (0-0.2) k/uL Anisocytosis Slight PT 9.8 (9.0-12.0) sec INR 0.9 (<1.2) APTT 26.0 (22.0-30.0) sec Sodium 135 L (137-145) mmol/L Potassium 4.3 (3.5-5.1) mmol/L Chloride 101 (98-107) mmol/L Carbon Dioxide 27 (22-30) mmol/L Anion Gap 7 mmol/L BUN 15 (9-20) mg/dL Creatinine 0.75 (0.66-1.25) mg/dL Est GFR (CKD-EPI)AfAm >90 (>60 ml/min/1.73 sqM) Est GFR (CKD-EPI)NonAf >90 (>60 ml/min/1.73 sqM) Glucose 271 H (74-99) mg/dL Calcium 9.1 (8.4-10.2) mg/dL Magnesium 2.0 (1.6-2.3) mg/dL Total Bilirubin 0.4 (0.2-1.3) mg/dL AST 35 (17-59) U/L ALT 41 (4-49) U/L Alkaline Phosphatase 138 H (38-126) U/L Troponin I (0.000-0.034) ng/mL NT-Pro-B Natriuret Pep 501 pg/mL Total Protein 7.3 (6.3-8.2) g/dL Albumin 3.9 (3.5-5.0) g/dL Lipase 279 (23-300) U/L 03/12/23 Range/Units 16:15 WBC (3.8-10.6) k/uL RBC (4.30-5.90) m/uL Hgb (13.0-17.5) gm/dL Hct (39.0-53.0) % MCV (80.0-100.0) fL MCH (25.0-35.0) pg MCHC (31.0-37.0) g/dL RDW (11.5-15.5) % Plt Count (150-450) k/uL MPV Neutrophils % % Lymphocytes % % Monocytes % % Eosinophils % % Basophils % % Neutrophils # (1.3-7.7) k/uL Lymphocytes # (1.0-4.8) k/uL Monocytes # (0-1.0) k/uL Eosinophils # (0-0.7) k/uL Basophils # (0-0.2) k/uL Anisocytosis PT (9.0-12.0) sec INR (<1.2) APTT (22.0-30.0) sec Sodium (137-145) mmol/L Potassium (3.5-5.1) mmol/L Chloride (98-107) mmol/L Carbon Dioxide (22-30) mmol/L Anion Gap mmol/L BUN (9-20) mg/dL Creatinine (0.66-1.25) mg/dL Est GFR (CKD-EPI)AfAm (>60 ml/min/1.73 sqM) Est GFR (CKD-EPI)NonAf (>60 ml/min/1.73 sqM) Glucose (74-99) mg/dL Calcium (8.4-10.2) mg/dL Magnesium (1.6-2.3) mg/dL Total Bilirubin (0.2-1.3) mg/dL AST (17-59) U/L ALT (4-49) U/L Alkaline Phosphatase (38-126) U/L Troponin I 0.195 H* (0.000-0.034) ng/mL NT-Pro-B Natriuret Pep pg/mL Total Protein (6.3-8.2) g/dL Albumin (3.5-5.0) g/dL Lipase (23-300) U/L Disposition Clinical Impression: Chest pain, Rib contusion, Exertional shortness of breath Disposition: ADMITTED IP TO THIS HOSP Condition: Stable Is patient prescribed a controlled substance at d/c from ED?: No Referrals: José Antonio Veronica MD [Primary Care Provider] - 1-2 days Time of Disposition: 16:30 Decision to Admit Reason: Admit from EC Decision Date: 03/12/23 Decision Time: 16:30
[2023-03-12 18:06] VITALS: BP 129/71; PULSE 84
--- NOTE | 2023-03-12 22:48 | P.HPIM ---
History of Present Illness H&P Date: 03/12/23 Patient left AMA before being seen by me. Past Medical History Past Medical History: Chest Pain / Angina, Heart Failure, COPD, Diabetes Mellitus, GERD/Reflux, Hypertension, Myocardial Infarction ([place]), Sleep Apnea/CPAP/BIPAP, Vascular Disorder Additional Past Medical History / Comment(s): increased SOB,Cervical fracture, chronic back pain, gout., PVD, diabetic neuropathy., sleep apnea- never got machine., chronic cough for 5-6 yrs- coughing up blood., [place] on 06/02/20,2nd OR 2020 or 2021(not sure exact jolene),Covid infection October 2020-spouse stated "was sick with Covid for approx a month" Last Myocardial Infarction Date:: 05/2020,2020 or 2021 History of Any Multi-Drug Resistant Organisms: MRSA Date of last positivie culture/infection: 2005 MDRO Source:: "all over- systemic" Past Surgical History: Cholecystectomy, Heart Catheterization With Stent Additional Past Surgical History / Comment(s): cardiac stent x1 Past Anesthesia/Blood Transfusion Reactions: No Reported Reaction Date of Last Stent Placement:: 05/2020 Past Psychological History: Anxiety, Depression, Panic Disorder Smoking Status: Current every day smoker Past Alcohol Use History: None Reported Past Drug Use History: None Reported - Past Family History Mother Family Medical History: No Reported History Father Family Medical History: Deep Vein Thrombosis (DVT) Medications and Allergies Home Medications Medication Instructions Recorded Confirmed Type Glimepiride [Amaryl] 1 mg PO DAILY 05/18/19 08/29/22 History traMADol HCl [Ultram] 50 mg PO TID PRN 05/18/19 08/29/22 History Pregabalin [Lyrica] 150 mg PO TID 05/31/20 08/29/22 History Aspirin 81 mg PO DAILY #30 chew 06/05/20 08/29/22 Rx Atorvastatin [Lipitor] 80 mg PO HS #30 tab 06/05/20 08/29/22 Rx Metoprolol Tartrate [Lopressor] 25 mg PO BID #60 tab 06/05/20 08/29/22 Rx Nitroglycerin Sl Tabs [Nitrostat] 0.4 mg SUBLINGUAL Q5M PRN #20 tab 06/05/20 Rx Ticagrelor [Brilinta] 90 mg PO BID #60 tab 06/05/20 08/29/22 Rx Famotidine [Pepcid] 20 mg PO HS 03/06/22 08/29/22 History sitaGLIPtin PHOS/metFORMIN HCL 1 tab PO BID 03/23/22 08/29/22 History [Janumet 50-1,000 mg Tablet] tiZANidine HCL 4 mg PO TID PRN 03/23/22 08/29/22 History Cephalexin [Keflex] 500 mg PO Q6HR #40 cap 08/29/22 Rx Ergocalciferol (Vitamin D2) 1,250 mcg PO Q7D 08/29/22 08/29/22 History [Drisdol (50,000 Iu)] Furosemide [Lasix] 40 mg PO BID 08/29/22 08/29/22 History Ibuprofen [Motrin] 800 mg PO Q8HR PRN #30 tab 08/29/22 Rx Isosorbide Mononitrate ER [Imdur] 60 mg PO DAILY 08/29/22 08/29/22 History Liraglutide [Victoza 2-Thad] 1.8 mg SQ DAILY 08/29/22 08/29/22 History Losartan Potassium 50 mg PO DAILY 08/29/22 08/29/22 History Spironolactone [Aldactone] 50 mg PO DAILY 08/29/22 08/29/22 History Allergies Allergy/AdvReac Type Severity Reaction Status Date / Time No Known Allergies Allergy Verified 03/12/23 14:59 Physical Exam Vitals: Vital Signs Temp Pulse Resp BP Pulse Ox 03/12/23 17:59 84 20 129/71 96 03/12/23 16:15 80 20 128/85 93 L 03/12/23 14:53 97.8 F 89 17 147/81 97 Intake and Output 03/12/23 03/12/23 03/12/23 06:59 14:59 22:59 Other: Weight 174.633 kg Results CBC & Chem 7: 03/12/23 16:15 03/12/23 16:15 Labs: Abnormal Lab Results - Last 24 Hours (Table) 03/12/23 03/12/23 03/12/23 Range/Units 16:15 16:15 16:15 WBC 11.7 H (3.8-10.6) k/uL Hgb 12.6 L (13.0-17.5) gm/dL Hct 38.2 L (39.0-53.0) % RDW 16.0 H (11.5-15.5) % Neutrophils # 8.0 H (1.3-7.7) k/uL Sodium 135 L (137-145) mmol/L Glucose 271 H (74-99) mg/dL Alkaline Phosphatase 138 H (38-126) U/L Troponin I 0.195 H* (0.000-0.034) ng/mL
--- NOTE | 2023-03-12 22:48 | P.DS ---
Providers Date of admission: 03/12/23 17:12 Expected date of discharge: 03/12/23 (Left AMA) Attending physician: Blaine Edmond Consults: 03/12/23 17:12 Consult Physician Routine Consulting Provider: [facility] Consult Reason/Comments: Chest pain, exertional dyspnea Do you want consulting provider notified?: Yes, Notify in am Primary care physician: José Antonio Jeremías [facility] Course: Patient left AMA before being seen by me. Plan - Discharge Summary New Discharge Prescriptions: No Action Glimepiride [Amaryl] 1 mg PO DAILY traMADol HCl [Ultram] 50 mg PO TID PRN PRN Reason: Pain Pregabalin [Lyrica] 150 mg PO TID Ticagrelor [Brilinta] 90 mg PO BID #60 tab Metoprolol Tartrate [Lopressor] 25 mg PO BID #60 tab Nitroglycerin Sl Tabs [Nitrostat] 0.4 mg SUBLINGUAL Q5M PRN #20 tab PRN Reason: Chest Pain Aspirin 81 mg PO DAILY #30 chew Atorvastatin [Lipitor] 80 mg PO HS #30 tab tiZANidine HCL 4 mg PO TID PRN PRN Reason: Muscle Pain Losartan Potassium 50 mg PO DAILY Famotidine [Pepcid] 20 mg PO HS sitaGLIPtin PHOS/metFORMIN HCL [Janumet 50-1,000 mg Tablet] 1 tab PO BID Liraglutide [Victoza 2-Thad] 1.8 mg SQ DAILY Isosorbide Mononitrate ER [Imdur] 60 mg PO DAILY Ergocalciferol (Vitamin D2) [Drisdol (50,000 Iu)] 1,250 mcg PO Q7D Spironolactone [Aldactone] 50 mg PO DAILY Furosemide [Lasix] 40 mg PO BID Cephalexin [Keflex] 500 mg PO Q6HR #40 cap Ibuprofen [Motrin] 800 mg PO Q8HR PRN #30 tab PRN Reason: Pain Discharge Medication List Glimepiride [Amaryl] 1 mg PO DAILY 05/18/19 [History] traMADol HCl [Ultram] 50 mg PO TID PRN 05/18/19 [History] Pregabalin [Lyrica] 150 mg PO TID 05/31/20 [History] Aspirin 81 mg PO DAILY #30 chew 06/05/20 [Rx] Atorvastatin [Lipitor] 80 mg PO HS #30 tab 06/05/20 [Rx] Metoprolol Tartrate [Lopressor] 25 mg PO BID #60 tab 06/05/20 [Rx] Nitroglycerin Sl Tabs [Nitrostat] 0.4 mg SUBLINGUAL Q5M PRN #20 tab 06/05/20 [Rx] Ticagrelor [Brilinta] 90 mg PO BID #60 tab 06/05/20 [Rx] Famotidine [Pepcid] 20 mg PO HS 03/06/22 [History] sitaGLIPtin PHOS/metFORMIN HCL [Janumet 50-1,000 mg Tablet] 1 tab PO BID 03/23/22 [History] tiZANidine HCL 4 mg PO TID PRN 03/23/22 [History] Cephalexin [Keflex] 500 mg PO Q6HR #40 cap 08/29/22 [Rx] Ergocalciferol (Vitamin D2) [Drisdol (50,000 Iu)] 1,250 mcg PO Q7D 08/29/22 [History] Furosemide [Lasix] 40 mg PO BID 08/29/22 [History] Ibuprofen [Motrin] 800 mg PO Q8HR PRN #30 tab 08/29/22 [Rx] Isosorbide Mononitrate ER [Imdur] 60 mg PO DAILY 08/29/22 [History] Liraglutide [Victoza 2-Thad] 1.8 mg SQ DAILY 08/29/22 [History] Losartan Potassium 50 mg PO DAILY 08/29/22 [History] Spironolactone [Aldactone] 50 mg PO DAILY 08/29/22 [History] Follow up Appointment(s)/Referral(s): José Antonio Veronica MD [Primary Care Provider] - 1-2 days Discharge Disposition: LEFT AGAINST MEDICAL ADVICE
== END 2023-03-12 18:17 | disposition left against medical advice (07) ==
LOC: EC 14:51 → 3SCARD 17:12
PROVIDERS: ADMIT Hospitalist; ATTEND Hospitalist
DX: R07.89 Other chest pain (principal); R06.09 Other forms of dyspnea; S20.211A Contusion of right front wall of thorax, initial encounter; W19.XXXA Unspecified fall, initial encounter; Z53.29 Procedure and treatment not carried out because of patient's decision for other reasons; I11.0 Hypertensive heart disease with heart failure; I50.9 Heart failure, unspecified; E78.5 Hyperlipidemia, unspecified; E11.40 Type 2 diabetes mellitus with diabetic neuropathy, unspecified; J44.9 Chronic obstructive pulmonary disease, unspecified; G47.30 Sleep apnea, unspecified; K21.9 Gastro-esophageal reflux disease without esophagitis; G89.29 Other chronic pain; M54.9 Dorsalgia, unspecified; M10.9 Gout, unspecified; F32.A Depression, unspecified; F41.0 Panic disorder [episodic paroxysmal anxiety]; E11.51 Type 2 diabetes mellitus with diabetic peripheral angiopathy without gangrene; F17.200 Nicotine dependence, unspecified, uncomplicated; I25.2 Old myocardial infarction; Z95.5 Presence of coronary angioplasty implant and graft; Z79.84 Long term (current) use of oral hypoglycemic drugs; Z79.899 Other long term (current) drug therapy; Z79.82 Long term (current) use of aspirin; Z79.02 Long term (current) use of antithrombotics/antiplatelets
CPT/HCPCS: 99285; 36415; 93005; 83880; 80053; 83690; 83735; 84484; 85025; 85610; 85730; 71046; G0378

== ENCOUNTER → 2023-05-10 | Outpatient (CLI) | payer OTHER ==
--- NOTE | 2023-05-10 20:24 | XR ---
EXAMINATION TYPE: XR lumbosacral spine min 4V DATE OF EXAM: 05/10/2023 4:14 PM CLINICAL INDICATION:Male, 42 years old with history of M54.50; COMPARISON: 10/01/2017 TECHNIQUE: XR lumbosacral spine min 4V - Frontal, lateral , bilateral oblique and coned in L5-S1 late ral views of the spine. FINDINGS: No evidence of any acute osseous pathology. No evidence of loss of vertebral body height i s seen. There is normal alignment of the lumbar vertebral bodies. Mild scattered disc space narrowing . Multilevel marginal osteophyte formation throughout the visualized spine. There is facet joint arth ropathy throughout the spine. Scattered at least mild neural foraminal stenosis worse at L5-S1. Limit ed evaluation of the neural foramen secondary to patient positioning. IMPRESSION: 1. No acute fracture. 2. Mild multilevel disc degeneration. Not significantly changed from prior. 3. Limited evaluation of the neural foramen secondary to patient positioning.
--- NOTE | 2023-05-10 20:32 | XR ---
EXAMINATION TYPE: XR sacrum coccyx DATE OF EXAM: 05/10/2023 4:14 PM CLINICAL INDICATION:Male, 42 years old with history of M54.50; COMPARISON: None TECHNIQUE: The sacrum and coccyx was examined in frontal and lateral projections. FINDINGS: There is no evidence of fracture or dislocation. There is no soft tissue abnormality. No a bnormal calcifications are present. Multilevel degenerative changes of the lower spine. IMPRESSION: No acute osseous pathology.
== END | disposition home or self-care (01) ==
LOC: RADXRMAIN 15:59
PROVIDERS: ATTEND Psychiatry & Neurology Neurology
DX: M53.3 Sacrococcygeal disorders, not elsewhere classified (principal); M51.37 Other intervertebral disc degeneration, lumbosacral region
CPT/HCPCS: 72110; 72220